=== PATIENT | female | born 1935 | race Caucasian/White ===

== ENCOUNTER → 2016-11-05 | Outpatient (CLI) | payer OTHER, MEDICAID ==
[2015-03-16 04:07] VITALS: BP 169/73
--- NOTE | 2016-11-06 08:57 | MG ---
HISTORY: SCREENING Comparison: 10/26/2015 FINDINGS: Bilateral CC and MLO projections of the right and left breast were obtained. Scattered fibroglandul ar tissue is seen to be present. No significant architectural distortion, mass or clustered microca lcifications can be observed to suggest malignancy. No skin thickening or nipple retraction is appr eciated. No pathological lymphadenopathy can be identified. IMPRESSION: NO RADIOGRAPHIC EVIDENCE OF MALIGNANCY. ACR CATEGORY I - NEGATIVE EXAM. FOLLOW-UP EXAM 1 YEAR. Diagnostic CAD was utilized and reviewed. * 0 (ZERO) - ASSESSMENT INCOMPLETE; ADDITIONAL IMAGING IS NEEDED. * 1/ (ONE) - NEGATIVE. * 2/II (TWO) - BENIGN FINDINGS. * 3/III (THREE) - PROBABLY BENIGN FINDING; SHORT INTERVAL FOLLOW-UP SUGGESTED. * 4/IV (FOUR) - SUSPICIOUS ABNORMALITY; BIOPSY SHOULD BE CONSIDERED. * 5/V - HIGHLY SUSPICIOUS OF MALIGNANCY; BIOPSY SHOULD BE PERFORMED. A NEGATIVE X-RAY REPORT SHOULD NOT DELAY BIOPSY IF A DOMINANT OR CLINICALLY SUSPICIOUS MASS IS PRESENT; 4 TO 8 PERCENT OF CANCERS ARE NOT IDENTIFIED BY X-RAY. A NEG ATIVE REPORT MAY REINFORCE THE CLINICAL IMPRESSION. ADENOSIS AND DENSE BREASTS MAY OBSCURE AN UNDER LYING NEOPLASM. Reported By:
== END ==
LOC: RAD 14:21
PROVIDERS: ATTEND Obstetrics & Gynecology Obstetrics
DX: Z12.31 Encounter for screening mammogram for malignant neoplasm of breast (principal)
CPT/HCPCS: 77067

== ENCOUNTER → 2016-12-07 | Outpatient (CLI) | payer OTHER, MEDICAID ==
[2015-03-16 04:07] VITALS: BP 169/73
[~2016-12-07] MED LIST: NS 100 ML IV 100 ML IV ONE
[2016-12-07 09:14] LABS: CREATININE 1.06 mg/dL (0.55-1.02)
--- NOTE | 2016-12-07 12:44 | CT ---
CT angiogram of the chest with contrast Indication: Aortic aneurysm, calcified splenic artery aneurysm. Comparison: 12/12/2015 Technique: CT images of the chest were obtained after IV contrast administration. Automatic exposure control was utilized. Findings: Images through the upper abdomen demonstrate a stable calcified 1.5 x 1.2 cm distal spleni c artery aneurysm. Diffuse atherosclerotic calcifications are seen within the abdomen. Previous chol ecystectomy noted. No aggressive osseous lesion identified. There is moderate cardiac enlargement, without significant pericardial thickening or pericardial eff usion, similar to prior. Diffuse coronary and thoracic aortic atherosclerotic calcifications are not ed. Previous CABG noted. Dilatation of the ascending aorta measures 3.9 x 3.9 cm at the level of the main pulmonary artery, unchanged from prior. The aortic arch and descending aorta are normal in karina iber. Contrast bolus timing is suboptimal, but no dissection flap identified. No evidence for intram ural hematoma on the precontrast images. No central or large proximal pulmonary arterial filling def ect identified. The lungs are clear without focal infiltrates, overt edema, or pleural effusion. The major airways a re patent. Impression: 1. Stable mild ascending aortic dilatation, measuring 3.9 cm. No evidence for acute aortic syndrome. No central pulmonary arterial filling defect. No acute chest process. 2. Stable peripherally calcified splenic artery aneurysm 3. Moderate cardiomegaly Reported By:
== END | disposition home or self-care (01) ==
LOC: RAD 08:37
PROVIDERS: ATTEND Physician Assistant
DX: I71.9 Aortic aneurysm of unspecified site, without rupture (principal)
CPT/HCPCS: 36415; 71275; 82565; 84520; A4222

== ENCOUNTER 2016-12-27 05:02 | Emergency (ER) | payer OTHER, MEDICAID ==
[2016-12-27 05:16] VITALS: BMI 25.7
--- NOTE | 2016-12-27 05:49 | DR.GENAD ---
HPI - PCP Primary Care Physician: LAURA Macias HPI Comment HPI Comment: COUGH, COLD CONGESTION THAT IS WORSE TODAY. NOW WITH CHEST TIGHTNESS. NO FEVER. YESTERDAY FELT LIKE SHE HAD FEVER. COUGH PRODUCTIVE YELLOW SPUTUM. NASAL DRAINAGE CLEAR. - Complaint/Symptoms Chief Complaint:: RUNNY NOSE, COUGH, NAUSEA, DISCOMFORT IN CHEST ONSET YESTERDAY AM Self Treatment fo Chief Complaint: HOME MEDS AND SOME TUMS, - Nurses notes reviewed Nurses Notes Review: Yes - Source History Provided: Patient - Mode of Arrival Mode of Arrival: Ambulatory - Timing Onset of Chief Complaint: 12/26/16 Came on: Suddenly - Duration Duration: Constant Duration: Days - Severity Severity: Moderate PMH - PMH Past Medical History: Yes Past Medical History: Coronary Artery Disease, Dyslipidemia, Hypertension Past Surgical History: Yes Surgical History: CABG/Valve Surgery, Cholecystectomy, EMERGENCY MEDICAL TECHNICIAN Surgery - Family History History of Family Medical Conditions: Yes Family Medical History: Cancer, [place] - Social History Does patient currently use any type of tobacco product: No Have you used tobacco products in the last 12 months: No Type of Tobacco Use: None Does any household member use tobacco: No Alcohol Use: None Do you use any recreational Drugs:: No Lives With: Alone Lives Where: Home - infectious screening In the last 2 months have you had wt loss of >10#?: NO Have you had fever, night sweats or hemotysis?: No Have you traveled outside the country in the last 6 months?: No Isolation: Standard ROS - Review of Systems Constitutional: Fever, Weakness, Fatigue. negative: Chills, Diaphoresis, Loss of Appetite Eyes: No Symptoms Reported. negative: Eye Pain, Discharge ENTM: Nose Discharge, Nose Congestion, Throat Pain. negative: Ear Pain Respiratoy: Productive Cough, Short of Breath, Wheezing. negative: Hemoptysis Cardiovascular: Chest Pain. negative: Edema, Palpitations Gastrointestinal/Abdominal: No Symptoms Reported. negative: Abdominal Pain, Diarrhea, Nausea, Vomiting Genitourinary: No Symptoms Reported. negative: Dysuria, Frequency, Hematuria Neurological: Headache, Weakness, Dizziness Musculoskeletal: Muscle Pain Integumentary: No Symptoms Reported Hematologic/Lymphatic: No Symptoms Reported Endocrine: No Symptoms Reported All Other Systems: Reviewed and Negative PE - Vital Signs Vitals: Temperature 98.1 F Pulse Rate [Right Brachial] 78 Pulse Rate 82 Respiratory Rate 14 Blood Pressure [Left Arm] 188/84 Blood Pressure 189/75 O2 Sat by Pulse Oximetry 96 - General Limitations: No Limitations General Appearance: Alert - Head Head Exam: Normal Inspection - Eyes Eye exam: Normal Appearance - ENT ENT Exam: Normal External Ear Exam External Ear Exam: Normal External Inspection TM/Canal Exam: Bilateral Normal Nose Exam: Normal Nose Exam Mouth Exam: Normal Inspection Throat Exam: Normal Inspection - Neck Neck Exam: Trachea Midline - Chest Chest Inspection: Symmetric Chest Wall Rise - Respiratory Respiratory Exam: Normal Lung Sounds Bilat Respiratory Exam: Bilateral Rhonchi, Upper Rhonchi, Lower Rhonchi - Cardiovascular Cardiovascular Exam: Regular Rate, Normal Rhythm, Normal Heart Sounds - Abdominal Exam Abdominal Exam: Normal Bowel Sounds, Soft. negative: Tenderness - Extremities Extremities Exam: Normal Inspection - Back Back Exam: Normal Inspection - Neurologic Neurological Exam: Alert, Oriented X3, CN II-XII Intact. negative: Motor Sensory Deficit - Psychiatric Psychiatric Exam: Normal Affect, Normal Mood - Skin Skin Exam: Normal Color MDM - Differential Diagnosis Differential Diagnosis: PNEUMONIA, CHEST PAIN, BRONCHITIS. SINUSITIS Course - Treatment Treatment: SEE ORDERS. - Education/Counseling Education/Counseling: Patient, Education Educated On: Treatment, Diagnosis, Needs for Follow Up ROR - Labs Reviewed Laboratory Results Reviewed?: Yes Result Diagrams: 12/27/16 05:50 12/27/16 05:50 Laboratory: WBC 5.3 X10^3/uL (3.6-10.0) 12/27/16 05:50 RBC 4.38 X10^6/uL (3.5-5.4) 12/27/16 05:50 Hgb 13.4 g/dL (12.0-16.0) 12/27/16 05:50 Hct 39.5 % (36.0-47.0) 12/27/16 05:50 MCV 90.2 fL (80.0-100.0) 12/27/16 05:50 MCH 30.6 pg (27.0-34.0) 12/27/16 05:50 MCHC 34.0 g/dL (33.0-35.0) 12/27/16 05:50 RDW 17.7 % (11.6-16.5) H 12/27/16 05:50 Plt Count 164 X10^3/uL (150.0-450.0) 12/27/16 05:50 MPV 9.1 fL (7.4-11.0) 12/27/16 05:50 Neut % 52.8 % (42.0-75.0) 12/27/16 05:50 Lymph % 34.2 % (21.0-51.0) 12/27/16 05:50 [place] % 9.9 % (0.0-13.0) 12/27/16 05:50 Eos % 1.8 % (0.9-2.9) 12/27/16 05:50 Baso % 1.3 % (0.2-1.0) H 12/27/16 05:50 Neut # 2.8 x10^3/uL (2.2-4.8) 12/27/16 05:50 Lymph # 1.8 X10^3/uL (1.3-2.9) 12/27/16 05:50 [place] # 0.5 x10^3/uL (0.3-0.8) 12/27/16 05:50 Eos # 0.1 x10^3/uL (0.0-0.2) 12/27/16 05:50 Baso # 0.1 X10^3/uL (0.0-0.1) 12/27/16 05:50 Absolute Nucleated RBC 0.0 /100WBC 12/27/16 05:50 Sodium 139 mmol/L (136-145) 12/27/16 05:50 Corrected Sodium 140 mmol/L (136-145) 12/27/16 05:50 Potassium 4.1 mmol/L (3.5-5.1) 12/27/16 05:50 Chloride 104 mmol/L (98-107) 12/27/16 05:50 Carbon Dioxide 26.9 mmol/L (21-32) 12/27/16 05:50 BUN 15 mg/dL (7-18) 12/27/16 05:50 Creatinine 1.07 mg/dL (0.55-1.02) H 12/27/16 05:50 Est GFR (MDRD) Af Amer > 60 (>60) 12/27/16 05:50 Est GFR (MDRD) Non-Af 52 (>60) L 12/27/16 05:50 Glucose 126 mg/dL (65-99) H 12/27/16 05:50 Calcium 9.0 mg/dL (8.5-10.1) 12/27/16 05:50 Corrected Calcium TNP 12/27/16 05:50 Total Bilirubin 0.90 mg/dL (0.2-1.0) 12/27/16 05:50 AST 31 Units/L (15-37) 12/27/16 05:50 ALT 35 Units/L (12-78) 12/27/16 05:50 Alkaline Phosphatase 138 Units/L (46-116) H 12/27/16 05:50 Creatine Kinase 76 Units/L (26-192) 12/27/16 05:50 CK-MB (CK-2) 1.0 ng/mL (0-4.0) 12/27/16 05:50 CK/CKMB % Calc 1.3 % (<4) 12/27/16 05:50 Troponin I < 0.02 ng/mL (0-1.5) 12/27/16 05:50 Total Protein 7.4 g/dL (6.4-8.2) 12/27/16 05:50 Albumin 3.8 g/dL (3.4-5.0) 12/27/16 05:50 Globulin 3.6 g/dL (2.5-4.5) 12/27/16 05:50 Albumin/Globulin Ratio 1.1 Ratio (1.1-2.1) 12/27/16 05:50 - XRAY XRAY Interpreted by: Radiologist XRAY Findings: REPORT DISCUSS WITH PATIENT - EKG Rhythm: NSR (EKG NOTED) - Diagnosis Discharge Problem: Bronchitis Chest pain Qualifiers: Chest pain type: other chest pain Qualified Code(s): R07.89 - Other chest pain - Discharge Plan Disposition: 01 HOME, SELF-CARE Condition: Stable Prescriptions: Azithromycin [ZITHROMAX Tab 250 mg *] 1 dose PO DAILY #6 tab Benzonatate [TESSALON PERLES *] 200 mg PO TID PRN #21 cap PRN Reason: Cough - Follow ups/Referrals Follow ups/Referrals: NFD,None [Primary Care Provider] - 3 days - Instructions Instructions: Chest Pain Observation, Acute Bronchitis, [id number] Additional Instructions: RETURN TO ED IF WORSE.
[2016-12-27 06:01] LABS: BASOPHILS # (AUTO) 0.1 X10^3/uL (0.0-0.1); BASOPHILS % (AUTO) 1.3 % (0.2-1.0); EOSINOPHILS # (AUTO) 0.1 x10^3/uL (0.0-0.2); EOSINOPHILS % (AUTO) 1.8 % (0.9-2.9); HEMATOCRIT 39.5 % (36.0-47.0); HEMOGLOBIN 13.4 g/dL (12.0-16.0); LYMPHOCYTES # (AUTO) 1.8 X10^3/uL (1.3-2.9); LYMPHOCYTES % (AUTO) 34.2 % (21.0-51.0); MEAN CORPUSCULAR HEMOGLOBIN 30.6 pg (27.0-34.0); MEAN CORPUSCULAR VOLUME 90.2 fL (80.0-100.0); MEAN PLATELET VOLUME 9.1 fL (7.4-11.0); MONOCYTES # (AUTO) 0.5 x10^3/uL (0.3-0.8); MONOCYTES % (AUTO) 9.9 % (0.0-13.0); NEUTROPHILS # (AUTO) 2.8 x10^3/uL (2.2-4.8); NEUTROPHILS % (AUTO) 52.8 % (42.0-75.0); PLATELET COUNT 164 X10^3/uL (150.0-450.0); RED BLOOD COUNT 4.38 X10^6/uL (3.5-5.4); RED CELL DISTRIBUTION WIDTH 17.7 % (11.6-16.5); WHITE BLOOD COUNT 5.3 X10^3/uL (3.6-10.0)
[2016-12-27 06:19] LABS: BLOOD UREA NITROGEN 15 mg/dL (7-18); CARBON DIOXIDE 26.9 mmol/L (21-32); CHLORIDE 104 mmol/L (98-107); COR NA(FOR HYPERGLY) 140 mmol/L (136-145); CREATININE 1.07 mg/dL (0.55-1.02); GLUCOSE 126 mg/dL (65-99); SODIUM 139 mmol/L (136-145); TROPONIN I < 0.02 ng/mL (0-1.5); eGFR BLACK RACES > 60 (>60); eGFR NON BLACK RACES 52 (>60)
[2016-12-27 06:23] VITALS: BP 188/84
--- NOTE | 2016-12-27 06:29 | RAD ---
HISTORY: Chest pain and nausea Study: Single-view chest, done portably Comparison: CTA chest done 12/07/2016 Findings: Cardiac monitoring leads are noted on the chest. There again changes of CABG with median sternotomy sutures and metallic sutures indicating coronary artery bypass grafts. The trachea is midline calcif ication of the aortic arch clear. No infiltrate, CHF, pleural fluid or pneumothorax is seen. Osseous structures are intact. IMPRESSION: Status post CABG with cardiomegaly. No acute disease is seen. Reported By:
[2016-12-27 06:34] LABS: ALANINE AMINOTRANSFERASE 35 Units/L (12-78); ALBUMIN 3.8 g/dL (3.4-5.0); ALKALINE PHOSPHATASE 138 Units/L (46-116); ASPARTATE AMINO TRANSFERASE 31 Units/L (15-37); CKMB % 1.3 % (<4); CREATINE KINASE 76 Units/L (26-192); TOTAL PROTEIN 7.4 g/dL (6.4-8.2)
[2016-12-27] MEDS ORDERED: ROCEPHIN VIAL 1 GM 1 GM in NS 50 ML IV + SPIKE MINIBAG* 50 ML IV ONE (06:54)
[2016-12-27] MEDS ORDERED: ROCEPHIN 1 GM IV PREMIX * OUT OF STOCK 50 ML IV ONE (06:56)
== END 2016-12-27 08:18 | disposition home or self-care (01) ==
LOC: ER 05:02
DX: J40 Bronchitis, not specified as acute or chronic (principal); R07.89 Other chest pain
CPT/HCPCS: 36415; 71010; 80053; 82550; 82553; 84484; 85025; 93005; 93010; 96365; 96374; 99283; A4222; J0696

== ENCOUNTER 2018-10-23 06:49 | Observation (INO) ==
[2018-10-23 07:29] LABS: BASOPHILS # (AUTO) 0.1 X10^3/uL (0.0-0.1); BASOPHILS % (AUTO) 1.3 % (0.2-1.0); EOSINOPHILS # (AUTO) 0.2 x10^3/uL (0.0-0.2); EOSINOPHILS % (AUTO) 2.9 % (0.9-2.9); HEMATOCRIT 35.9 % (36.0-47.0); LYMPHOCYTES % (AUTO) 25.3 % (21.0-51.0); MEAN CORPUSCULAR HEMOGLOBIN 29.1 pg (27.0-34.0); MEAN CORPUSCULAR HGB CONC 33.5 g/dL (33.0-35.0); MEAN CORPUSCULAR VOLUME 86.8 fL (80.0-100.0); MEAN PLATELET VOLUME 8.7 fL (7.4-11.0); MONOCYTES # (AUTO) 0.7 x10^3/uL (0.3-0.8); MONOCYTES % (AUTO) 8.5 % (0.0-13.0); NEUTROPHILS # (AUTO) 4.8 x10^3/uL (2.2-4.8); PLATELET COUNT 212 X10^3/uL (150.0-450.0); RED BLOOD COUNT 4.14 X10^6/uL (3.5-5.4); RED CELL DISTRIBUTION WIDTH 16.4 % (11.6-16.5); WHITE BLOOD COUNT 7.8 X10^3/uL (3.6-10.0)
--- NOTE | 2018-10-23 07:34 | DR.CP ---
HPI Time Seen Time Seen by Provider: 10/23/18 07:23 PCP Primary Care Physician: LAURA HPI Comment HPI Comment: Patient presents with complaint of chest pain. Earlier today the pain level of 7 but now two. The pain is on the left chest and radiates media lly. Complaint Chief Complaint Doctor Comments: chest pain Chief Complaint:: PT C/O CHEST PAIN, LT ARM PAIN AND EPIGASTRIC PAIN. PT STATES SHE STARTED WITH THE PAIN AROUND 2 AM. PT STATES SHE HAS BEEN HAVING DIARRHEA ALSO. 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 Past Surgical History Comment: TRIPLE BYPASS Family History History of Family Medical Conditions: Yes Family Medical History: Cancer and [place] Social History Does any household member use tobacco: No Alcohol Use: None Do you use any recreational Drugs:: No Lives With: Alone Lives Where: Home infectious screening In the last 2 months have you had wt loss of >10#?: NO Have you had fever, night sweats or hemotysis?: No Have you traveled outside the country in the last 6 months?: No Isolation: Standard ROS Review of Systems Constitutional: No Symptoms Reported ENTM: No Symptoms Reported Respiratoy: No Symptoms Reported Cardiovascular: No Symptoms Reported Gastrointestinal/Abdominal: No Symptoms Reported Genitourinary: No Symptoms Reported Neurological: No Symptoms Reported Musculoskeletal: No Symptoms Reported Hematologic/Lymphatic: No Symptoms Reported Endocrine: No Symptoms Reported All Other Systems: Reviewed and Negative PE Vitals Vitals: Temperature 97.2 F Pulse Rate 80 Respiratory Rate 18 Blood Pressure [Left Arm] 188/84 Blood Pressure 134/68 O2 Sat by Pulse Oximetry 93 General Limitations: No Limitations General Appearance: Alert and In No Apparent Distress Head Head Exam: Normal Inspection, Atraumatic and Normocephalic Eyes Eye exam: Normal Appearance, PERRL and EOMI ENT ENT Exam: Normal Exam, Normal Oropharynx and Normal External Ear Exam Chest Chest Inspection: Normal Inspection and Symmetric Chest Wall Rise Respiratory Respiratory Exam: Normal Lung Sounds Bilat Respiratory Exam: Bilateral: Clear to Auscultation Cardiovascular Cardiovascular Exam: Regular Rate and Normal Rhythm Edema: Normal Abdominal Exam Abdominal Exam: Normal Inspection, Normal Bowel Sounds and Soft Abdominal Tenderness: RUQ, RLQ and LUQ Extremities Extremities Exam: Normal Inspection Back Back Exam: Normal Inspection and Full ROM Neurologic Neurological Exam: Alert, Oriented X3 and CN II-XII Intact Psychiatric Psychiatric Exam: Normal Affect Skin Skin Exam: Warm, Dry and Intact ROR Labs Reviewed Result Diagrams: 10/23/18 07:18 10/23/18 07:18
--- NOTE | 2018-10-23 07:40 | RAD ---
HISTORY: Chest pain Study: Chest AP portable Comparison: 12/27/2016 Findings: The patient is status post median sternotomy and CABG. The heart remains enlarged. No congestive heart failure is noted. No acute alveolar infiltrates or pleural effusions are identified. The bony thorax is unremarkable. IMPRESSION: Moderate cardiomegaly without congestive heart failure No infiltrates Postsurgical changes as above Reported By:
[2018-10-23 07:59] LABS: BLOOD UREA NITROGEN 26 mg/dL (7-18); CALCIUM 8.9 mg/dL (8.5-10.1); CARBON DIOXIDE 26.4 mmol/L (21-32); CHLORIDE 102 mmol/L (98-107); COR NA(FOR HYPERGLY) 140 mmol/L (136-145); CREATININE 1.22 mg/dL (0.55-1.02); SODIUM 140 mmol/L (136-145); eGFR NON BLACK RACES 45 (>60)
[2018-10-23 08:00] LABS: CKMB % 2.4 % (<4); CREATINE KINASE 50 Units/L (26-192); CREATINE KINASE MB 1.2 ng/mL (0-4.0); MAGNESIUM 2.2 mg/dL (1.7-2.9)
[2018-10-23 08:13] LABS: ALANINE AMINOTRANSFERASE 27 Units/L (12-78); ALKALINE PHOSPHATASE 105 Units/L (46-116); ASPARTATE AMINO TRANSFERASE 20 Units/L (15-37)
[2018-10-23 08:14] LABS: ALBUMIN 3.8 g/dL (3.4-5.0); TOTAL PROTEIN 6.7 g/dL (6.4-8.2)
--- NOTE | 2018-10-23 09:22 | DR.CP ---
HPI Time Seen Time Seen by Provider: 10/23/18 07:23 PCP Primary Care Physician: LAURA Complaint Chief Complaint:: PT C/O CHEST PAIN, LT ARM PAIN AND EPIGASTRIC PAIN. PT STATES SHE STARTED WITH THE PAIN AROUND 2 AM. PT STATES SHE HAS BEEN HAVING DIARRHEA ALSO. PT STATES Source History Provided: Patient Mode of Arrival Mode of Arrival: Ambulatory Timing Onset of Chief Complaint: 10/23/18 PMH PMH Past Medical History: Yes Past Medical History: Coronary Artery Disease, Dyslipidemia and Hypertension Past Surgical History: Yes Surgical History: CABG/Valve Surgery, Cholecystectomy and PLASMA PROCESSING TECHNICIAN Surgery Past Surgical History Comment: TRIPLE BYPASS Family History History of Family Medical Conditions: Yes Family Medical History: Cancer and [place] Social History Does any household member use tobacco: No Alcohol Use: None Do you use any recreational Drugs:: No Lives With: Alone Lives Where: Home infectious screening In the last 2 months have you had wt loss of >10#?: NO Have you had fever, night sweats or hemotysis?: No Have you traveled outside the country in the last 6 months?: No Isolation: Standard PE Vitals Vitals: Temperature 97.2 F Pulse Rate 56 Respiratory Rate 25 Blood Pressure [Left Arm] 188/84 Blood Pressure 141/65 O2 Sat by Pulse Oximetry 96 COURSE Consultation Consultation Comments: 10:00 : DISCUSS PATIENT WITH DR. SANCHEZ. HE WILL ADM PATIENT. TIME 2MIN. ADMISSION ORDERS DONE. Education/Counseling Education/Counseling: Patient Educated On: Diagnosis ROR Labs Reviewed Laboratory Results Reviewed?: Yes Result Diagrams: 10/23/18 07:18 10/23/18 07:18 Laboratory: WBC 7.8 X10^3/uL (3.6-10.0) 10/23/18 07:18 RBC 4.14 X10^6/uL (3.5-5.4) 10/23/18 07:18 Hgb 12.0 g/dL (12.0-16.0) 10/23/18 07:18 Hct 35.9 % (36.0-47.0) L 10/23/18 07:18 MCV 86.8 fL (80.0-100.0) 10/23/18 07:18 MCH 29.1 pg (27.0-34.0) 10/23/18 07:18 MCHC 33.5 g/dL (33.0-35.0) 10/23/18 07:18 RDW 16.4 % (11.6-16.5) 10/23/18 07:18 Plt Count 212 X10^3/uL (150.0-450.0) 10/23/18 07:18 MPV 8.7 fL (7.4-11.0) 10/23/18 07:18 Neut % (Auto) 62.0 % (42.0-75.0) 10/23/18 07:18 Lymph % (Auto) 25.3 % (21.0-51.0) 10/23/18 07:18 [place] % (Auto) 8.5 % (0.0-13.0) 10/23/18 07:18 Eos % (Auto) 2.9 % (0.9-2.9) 10/23/18 07:18 Baso % (Auto) 1.3 % (0.2-1.0) H 10/23/18 07:18 Neut # (Auto) 4.8 x10^3/uL (2.2-4.8) 10/23/18 07:18 Lymph # (Auto) 2.0 X10^3/uL (1.3-2.9) 10/23/18 07:18 [place] # (Auto) 0.7 x10^3/uL (0.3-0.8) 10/23/18 07:18 Eos # (Auto) 0.2 x10^3/uL (0.0-0.2) 10/23/18 07:18 Baso # (Auto) 0.1 X10^3/uL (0.0-0.1) 10/23/18 07:18 Absolute Nucleated RBC 0.0 /100WBC 10/23/18 07:18 INR Target Range - 10/23/18 07:18 INR 1.39 (0.8-1.3) H 10/23/18 07:18 APTT 32.4 SECONDS (22.9-36.5) 10/23/18 07:18 PTT Comment - 10/23/18 07:18 D-Dimer 432 ng/mL (0-400) H* 10/23/18 07:18 Sodium 140 mmol/L (136-145) 10/23/18 07:18 Corrected Sodium 140 mmol/L (136-145) 10/23/18 07:18 Potassium 4.0 mmol/L (3.5-5.1) 10/23/18 07:18 Chloride 102 mmol/L (98-107) 10/23/18 07:18 Carbon Dioxide 26.4 mmol/L (21-32) 10/23/18 07:18 BUN 26 mg/dL (7-18) H 10/23/18 07:18 Creatinine 1.22 mg/dL (0.55-1.02) H 10/23/18 07:18 Est GFR (MDRD) Af Amer 54 (>60) L 10/23/18 07:18 Est GFR (MDRD) Non-Af 45 (>60) L 10/23/18 07:18 Glucose 119 mg/dL (65-99) H 10/23/18 07:18 Calcium 8.9 mg/dL (8.5-10.1) 10/23/18 07:18 Corrected Calcium TNP 10/23/18 07:18 Magnesium 2.2 mg/dL (1.7-2.9) 10/23/18 07:18 Total Bilirubin 0.70 mg/dL (0.2-1.0) 10/23/18 07:18 AST 20 Units/L (15-37) 10/23/18 07:18 ALT 27 Units/L (12-78) 10/23/18 07:18 Alkaline Phosphatase 105 Units/L (46-116) 10/23/18 07:18 Creatine Kinase 50 Units/L (26-192) 10/23/18 07:18 CK-MB (CK-2) 1.2 ng/mL (0-4.0) 10/23/18 07:18 CK/CKMB % Calc 2.4 % (<4) 10/23/18 07:18 Troponin I 0.00 ng/mL (0-1.5) 10/23/18 07:18 Total Protein 6.7 g/dL (6.4-8.2) 10/23/18 07:18 Albumin 3.8 g/dL (3.4-5.0) 10/23/18 07:18 Globulin 2.9 g/dL (2.5-4.5) 10/23/18 07:18 Albumin/Globulin Ratio 1.3 Ratio (1.1-2.1) 10/23/18 07:18 XRAY XRAY Interpreted by: Radiologist XRAY Findings: REPORT ON RECORD NOTED AND DISCUSS WITH PATIENT. EKG Rate: 66 [place]: Normal Rhythm: NSR and PVCs (BOGEMINI) Block: [address]: Nonsp Diagnosis Discharge Problem: D-dimer, elevated Chest pain Qualifiers: Chest pain type: precordial pain Qualified Code(s): R07.2 - Precordial pain CAD (coronary artery disease) Qualifiers: Coronary Disease-Associated Artery/Lesion type: unspecified vessel or lesion type [place] vs. transplanted heart: [place] heart Associated angina: with stable angina Qualified Code(s): I25.118 - Atherosclerotic heart disease of [place] coronary artery with other forms of angina pectoris HTN (hypertension) Qualifiers: Hypertension type: essential hypertension Qualified Code(s): I10 - Essential (primary) hypertension
[2018-10-23] MEDS ORDERED: ASPIRIN 81 MG CHEWTAB PO SCH (10:00)
[2018-10-23] MEDS ORDERED: ELIQUIS PO SCH (11:02)
[2018-10-23] MEDS ORDERED: NITROSTAT SL PRN (11:02)
--- NOTE | 2018-10-23 11:32 | CT ---
HISTORY: Left chest pain, elevated D-dimer Study: CTA chest with contrast for pulmonary embolus Comparison: 12/07/2016 Technique: Axial post-contrast images with coronal, sagittal, and three-dimensional maximum intensity projection images obtained in evaluated. Dose reduction procedures were used with mA/kv adjusted for body size. Findings: There is no evidence for acute pulmonary thromboembolic disease. Examination of the mediastinum demonstrated no definite evidence for mediastinal masses, abnormal mediastinal or abnormal hilar adenopathy, or pleural effusions. Calcific atherosclerotic changes present in the thoracic aorta. There is mild dilatation of the aortic root measuring 4.1 x 4.1 cm in diameter not significantly changed from the prior examination. Coronary artery calcifications are present. The heart is enlarged. No chest wall or axillary abnormality is identified. Those portions of the upper abdominal organs visualized were within normal limits. Incidental note once again made of a densely calcified 1.7 cm splenic artery aneurysm. Examination of the lung cha demonstrated no significant nodules, masses, alveolar infiltrates, areas of consolidation, peribronchial thickening, or bronchiectasis. IMPRESSION: No evidence for acute pulmonary thromboembolic disease Mild dilatation of the aortic root 4.1 cm as compared to 3.9 cm on the prior examination. Stable densely calcified splenic artery aneurysm Moderate cardiomegaly without definite congestive heart failure Reported By:
[2018-10-23] MEDS: ZESTRIL TAB 20 MG PO SCH (11:47)
[2018-10-23 12:47] VITALS: BMI 26.4
[2018-10-23 13:15] LABS: BILIRUBIN,URINE NEGATIVE (NEGATIVE); BLOOD/HEMOGLOBIN,URINE NEGATIVE (NEGATIVE); GLUCOSE, URINE NEGATIVE (NEGATIVE); KETONES,URINE NEGATIVE (NEGATIVE); LEUKOCYTE ESTERASE ,URINE NEGATIVE (NEGATIVE); NITRITES,URINE NEGATIVE (NEGATIVE); PROTEIN,URINE NEGATIVE (NEGATIVE); UROBILINOGEN,URINE NORMAL (NORMAL)
[2018-10-23 13:17] LABS: APPEARANCE,URINE CLEAR (CLEAR); COLOR,URINE STRAW (YELLOW)
[2018-10-23 14:30] LABS: CKMB % 2.2 % (<4); CREATINE KINASE 45 Units/L (26-192); CREATINE KINASE MB < 1.0 ng/mL (0-4.0); TROPONIN I < 0.02 ng/mL (0-1.5)
[2018-10-23] MEDS: TYLENOL 325 MG TAB PO PRN ×2 (15:10→21:20)
[2018-10-23] MEDS: MAALOX or MYLANTA PO PRN ×2 (15:10→20:58)
[2018-10-23 20:04] LABS: CKMB % 1.8 % (<4); CREATINE KINASE 56 Units/L (26-192); CREATINE KINASE MB < 1.0 ng/mL (0-4.0); TROPONIN I < 0.02 ng/mL (0-1.5)
[2018-10-23] MEDS ORDERED: NORVASC TAB 5 MG PO SCH (21:00)
[2018-10-23] MEDS ORDERED: XANAX PO PRN (21:10)
[2018-10-23] MEDS ORDERED: LYRICA CAP 150 MG PO SCH (21:15)
[2018-10-23] MEDS: LYRICA CAP 75 MG PO SCH (21:47)
[2018-10-24 05:34] LABS: BASOPHILS # (AUTO) 0.2 X10^3/uL (0.0-0.1); BASOPHILS % (AUTO) 2.9 % (0.2-1.0); EOSINOPHILS # (AUTO) 0.3 x10^3/uL (0.0-0.2); EOSINOPHILS % (AUTO) 4.1 % (0.9-2.9); HEMATOCRIT 37.2 % (36.0-47.0); HEMOGLOBIN 12.6 g/dL (12.0-16.0); LYMPHOCYTES # (AUTO) 2.5 X10^3/uL (1.3-2.9); LYMPHOCYTES % (AUTO) 32.7 % (21.0-51.0); MEAN CORPUSCULAR VOLUME 88.1 fL (80.0-100.0); MEAN PLATELET VOLUME 9.6 fL (7.4-11.0); MONOCYTES # (AUTO) 0.6 x10^3/uL (0.3-0.8); MONOCYTES % (AUTO) 7.9 % (0.0-13.0); NEUTROPHILS % (AUTO) 52.4 % (42.0-75.0); PLATELET COUNT 196 X10^3/uL (150.0-450.0); RED BLOOD COUNT 4.22 X10^6/uL (3.5-5.4); RED CELL DISTRIBUTION WIDTH 16.6 % (11.6-16.5); WHITE BLOOD COUNT 7.7 X10^3/uL (3.6-10.0)
[2018-10-24 05:54] LABS: ALANINE AMINOTRANSFERASE 23 Units/L (12-78); ALBUMIN 3.5 g/dL (3.4-5.0); ALKALINE PHOSPHATASE 99 Units/L (46-116); ASPARTATE AMINO TRANSFERASE 17 Units/L (15-37); BLOOD UREA NITROGEN 18 mg/dL (7-18); CALCIUM 8.8 mg/dL (8.5-10.1); CARBON DIOXIDE 27.8 mmol/L (21-32); CHLORIDE 105 mmol/L (98-107); CHOLESTEROL 173 mg/dL (0-200); CREATININE 1.08 mg/dL (0.55-1.02); HDL CHOLESTEROL 57 mg/dL (40-60); SODIUM 141 mmol/L (136-145); TOTAL PROTEIN 6.7 g/dL (6.4-8.2); TRIGLYCERIDES 174 mg/dL (0-150); eGFR NON BLACK RACES 52 (>60)
[2018-10-24] MEDS ORDERED: LOPRESSOR TAB 50 MG PO SCH ×2 (09:00)
[2018-10-24] MEDS ORDERED: LR 1000 ML IV 1,000 ML ONE (09:17)
[2018-10-24] MEDS ORDERED: DIPRIVAN VIAL 20 ML ONE (09:27)
[2018-10-24] MEDS ORDERED: PROTONIX INJ 40 MG VIAL IVP SCH (10:00)
[2018-10-24] MEDS ORDERED: ZESTRIL TAB 20 MG ONE (10:09)
[2018-10-24] MEDS: ZESTRIL TAB 20 MG PO SCH (10:12)
[2018-10-24] MEDS: LYRICA CAP 75 MG PO SCH (10:14)
[2018-10-24 11:49] VITALS: BP 151/71
== END 2018-10-24 12:20 | disposition home or self-care (01) ==
LOC: ER 06:54 → MED/SURG 06:54
PROVIDERS: ADMIT Obstetrics & Gynecology Obstetrics; ATTEND Obstetrics & Gynecology Obstetrics
DX: R94.4 Abnormal results of kidney function studies; R10.13 Epigastric pain; K29.00 Acute gastritis without bleeding; K21.9 Gastro-esophageal reflux disease without esophagitis; Z79.01 Long term (current) use of anticoagulants; R94.31 Abnormal electrocardiogram [ECG] [EKG]; I10 Essential (primary) hypertension; E78.2 Mixed hyperlipidemia; K92.1 Melena; K44.9 Diaphragmatic hernia without obstruction or gangrene; R10.84 Generalized abdominal pain; R79.1 Abnormal coagulation profile; I25.118 Atherosclerotic heart disease of native coronary artery with other forms of angina pectoris; R07.89 Other chest pain; Z79.899 Other long term (current) drug therapy
CPT/HCPCS: 36415; 71010; 71045; 71275; 80053; 80061; 81003; 82270; 82550; 82553; 83735; 84484; 85025; 85378; 85610; 85730; 88305; 88341; 93005; 94760; 96365; 96367; 96374; 99100; 99284; A4222; C9113; G0378; J2704; J3490; J7120

== ENCOUNTER 2020-07-09 14:52 | Observation (INO) ==
[2020-07-09 15:01] VITALS: BMI 27.4
--- NOTE | 2020-07-09 15:05 | DR.CP ---
HPI Time Seen Time Seen by Provider: 07/09/20 15:05 PCP Primary Care Physician: DR SANCHEZ HPI Comment HPI Comment: This is a 84-year-old female with previous history of CAD, status post CABG, A. fib (on Eliquis) who presents with approximately 1 hour history of chest pain. Complains of sternal area chest pain, radiating to bilateral flanks, dull/aching in quality, constant, relieved after antiacids at home mildly, associated with epigastric burning of the past 2 days. No shortness of breath, palpitations, syncope, diaphoresis. Patient has a previous history of CAD in the past requiring CABG in 1997. Denies any similarity to her current pain to pain leading up to her previous bypass. Follows with Dr. Redman (cardiology). Primary care physician is Dr. Sanchez. Denies lower extremity edema, ROLON, orthopnea. No fever/chills. No cough/cold/congestion Complaint Chief Complaint:: PT C/O GENERALIZED CHEST PAIN THAT RADIATES INTO LEFT ARM X 1 HOUR. PT ALSO C/O GAS THIS MORNING WITH SOME MILD SHORTNESS OF BREATH BUT STATES THAT SHE IS FEELING A LITTLE BETTER NOW. Self Treatment fo Chief Complaint: WAS SEEN BY DR REDMAN OF CARDIOLOGY LAST SATURDAY. Source History Provided: Patient Mode of Arrival Mode of Arrival: EMS Timing Onset of Chief Complaint: 07/09/20 Came on: Suddenly Duration Duration: Constant Severity Severity: Moderate PMH PMH Past Medical History: Yes Past Medical History: Coronary Artery Disease Past Medical History Comment: COVID POSITIVE MAY 27 Past Surgical History: Yes Surgical History: CABG/Valve Surgery and Tonsillectomy Family History History of Family Medical Conditions: Yes Family Medical History: Hypertension Social History Does patient currently use any type of tobacco product: No Have you used tobacco products in the last 12 months: No Type of Tobacco Use: None Does any household member use tobacco: No Alcohol Use: None Do you use any recreational Drugs:: No Lives With: Family Lives Where: Home Infectious screening In the last 2 months have you had wt loss of >10#?: NO Have you had fever, night sweats or hemotysis?: No Have you traveled outside the country in the last 6 months?: No Isolation: Standard ROS Review of Systems Constitutional: No Symptoms Reported Eyes: No Symptoms Reported ENTM: No Symptoms Reported Respiratoy: negative Short of Breath Cardiovascular: Chest Pain; negative Edema, Palpitations and Syncope Gastrointestinal/Abdominal: negative Abdominal Pain, Nausea and Vomiting Genitourinary: No Symptoms Reported Neurological: No Symptoms Reported Musculoskeletal: No Symptoms Reported Integumentary: No Symptoms Reported Hematologic/Lymphatic: No Symptoms Reported Endocrine: No Symptoms Reported Psychiatric: No Symptoms Reported All Other Systems: Reviewed and Negative PE Vitals Vitals: Temperature 36.7 C Pulse Rate 55 Respiratory Rate 15 Blood Pressure [Left Arm] 134/64 Blood Pressure 151/66 O2 Sat by Pulse Oximetry 95 General Limitations: No Limitations General Appearance: Alert and In No Apparent Distress Head Head Exam: Normal Inspection Eyes Eye exam: Normal Appearance ENT ENT Exam: Normal Exam Chest Chest Inspection: Normal Inspection Respiratory Respiratory Exam: Normal Lung Sounds Bilat; negative Accessory Muscle Use and Respiratory Distress Respiratory Exam: Bilateral: Clear to Auscultation Cardiovascular Cardiovascular Exam: Regular Rate and Irregular Rhythm; negative Systolic Murmur Pulse: Normal Edema: Normal Abdominal Exam Abdominal Exam: Normal Inspection, Normal Bowel Sounds and Soft Extremities Extremities Exam: Normal Inspection Back Back Exam: Normal Inspection Neurologic Neurological Exam: Alert and Oriented X3 Psychiatric Psychiatric Exam: Normal Affect and Normal Mood Skin Skin Exam: Warm, Dry, Intact and Normal Color COURSE Treatment Treatment: This is a 84-year-old female with previous history of CAD/status post CABG (1997), A. fib (on Eliquis) acute chest pain. Chest pain resolved upon arrival to ED. EKG obtained demonstrated an old Q wave, no reciprocal ST segment changes. No continued active chest pain in the ER. TNI negative. Sodium incidentally noted to be 120. Patient has a previous history of hyponatremia with a noted sodium of 126 last year. Unclear etiology of her hyponatremia. Do not suspect hypovolemia by history. Will obtain urine sodium/creatinine as well as urine and serum osmolality. We will start patient on gentle IV fluids. Discussed all details of case with hospitalist on-call (Dr. Sanchez) who agrees to admit. ASA given. [facility] Labs Reviewed Result Diagrams: 07/09/20 15:30 07/09/20 15:30 Laboratory: WBC 5.8 X10^3/uL (3.6-10.0) 07/09/20 15:30 RBC 3.73 X10^6/uL (3.5-5.4) 07/09/20 15:30 Hgb 10.8 g/dL (12.0-16.0) L 07/09/20 15:30 Hct 32.7 % (36.0-47.0) L 07/09/20 15:30 MCV 87.6 fL (80.0-100.0) 07/09/20 15:30 MCH 28.8 pg (27.0-34.0) 07/09/20 15: MCHC 32.9 g/dL (33.0-35.0) L 07/09/20 15: RDW 19.9 % (11.6-16.5) H 07/09/20 15: Plt Count 287 X10^3/uL (150.0-450.0) 07/09/20: MPV 7.9 fL (7.4-11.0) 07/09/20 15: Neut % (Auto) 76.5 % (42.0-75.0) H 07/09/20 15: Lymph % (Auto) 13.6 % (21.0-51.0) L 07/09/20 15: [place] % (Auto) 8.3 % (0.0-13.0) 07/09/20 15: Eos % (Auto) 0.5 % (0.9-2.9) L 07/09/20 15: Baso % (Auto) 1.1 % (0.2-1.0) H 07/09/20 15:30 Neut # (Auto) 4.4 x10^3/uL (2.2-4.8) 07/09/20 15:30 Lymph # (Auto) 0.8 X10^3/uL (1.3-2.9) L 07/09/20 15:30 [place] # (Auto) 0.5 x10^3/uL (0.3-0.8) 07/09/20 15: Eos # (Auto) 0.0 x10^3/uL (0.0-0.2) 07/09/20 15: Baso # (Auto) 0.1 X10^3/uL (0.0-0.1) 07/09/20 15: Absolute Nucleated RBC 0.0 /100WBC 07/09/20 15:30 PT 18.0 SECONDS (11.8-14.3) 07/09/20 15:30 INR Target Range - 07/09/20 15:30 INR 1.54 (0.8-1.3) H 07/09/20 15:30 APTT 35.1 SECONDS (22.9-36.5) 07/09/20 15:30 PTT Comment - 07/09/20 15:30 Sodium 120 mmol/L (136-145) L* 07/09/20 15:30 Corrected Sodium 121 mmol/L (136-145) L 07/09/20 15:30 Potassium 4.0 mmol/L (3.5-5.1) 07/09/20 15:30 Chloride 86 mmol/L (98-107) L 07/09/20 15:30 Carbon Dioxide 28.2 mmol/L (21-32) 07/09/20 15:30 BUN 15 mg/dL (7-18) 07/09/20 15:30 Creatinine 1.54 mg/dL (0.55-1.02) H 07/09/20 15:30 Est GFR (MDRD) Af Amer 41 (>60) L 07/09/20 15:30 Est GFR (MDRD) Non-Af 34 (>60) L 07/09/20 15:30 Glucose 146 mg/dL (65-99) H 07/09/20 15:30 Calcium 8.8 mg/dL (8.5-10.1) 07/09/20 15:30 Troponin I < 0.02 ng/mL (0-1.5) 07/09/20 15:30 EKG Compared to prior EKG Dated: 06/12/20 Rate: 58 Rhythm: Afib Block: IVCD Hypertrophy: None ST: Nonsp (q wave leads, no reciprical ST segment depressions, old t wave inversions ) Opioid Opioid Risk Tool Age (Daniel box if 16-45): No History of Preadolescent Sexual Abuse: No Total: 0 Total Score Risk Category: Low Risk Copyright: Ramón PERRY predicting aberrant behaviors Diagnosis Discharge Problem: Acute hyponatremia, Chronic hyponatremia Chest pain Qualifiers: Chest pain type: unspecified Qualified Code(s): R07.9 - Chest pain, unspecified CAD (coronary artery disease) Qualifiers: Coronary Disease-Associated Artery/Lesion type: bypass graft [place] vs. transplanted heart: pic[place] heart Associated angina: with stable angina Qualified Code(s): I25.708 - Atherosclerosis of coronary artery bypass graft(s), unspecified, with other forms of angina pectoris A-fib Qualifiers: Atrial fibrillation type: longstanding persistent Qualified Code(s): I48.11 - Longstanding persistent atrial fibrillation Instructions Forms: Patient Portal Social Distancing
--- NOTE | 2020-07-09 15:30 | RAD ---
HISTORYChest painSTUDYPortable AP chestCOMPARISONFebruary 2020FINDINGSThe heart is mildly enlarged. Sternal wires and mediastinal vascular clips are present. The lungs are grossly clear although the left lower lobe is significantly obscured by the heart. There is blunting of the right costophrenic sulcus. No pneumothorax identified.IMPRESSIONMild stable cardiac prominence. Postsurgical changes as described. Small right pleural effusion. A left lower lobe infiltrate or atelectasis is not excluded, partly obscured by the heart.Electronically signed by: ALISON BOLIVAR (Jul 09, 2020 15:29:21)
[2020-07-09 15:40] LABS: BASOPHILS # (AUTO) 0.1 X10^3/uL (0.0-0.1); BASOPHILS % (AUTO) 1.1 % (0.2-1.0); EOSINOPHILS % (AUTO) 0.5 % (0.9-2.9); HEMATOCRIT 32.7 % (36.0-47.0); HEMOGLOBIN 10.8 g/dL (12.0-16.0); LYMPHOCYTES # (AUTO) 0.8 X10^3/uL (1.3-2.9); LYMPHOCYTES % (AUTO) 13.6 % (21.0-51.0); MEAN CORPUSCULAR HEMOGLOBIN 28.8 pg (27.0-34.0); MEAN CORPUSCULAR HGB CONC 32.9 g/dL (33.0-35.0); MEAN CORPUSCULAR VOLUME 87.6 fL (80.0-100.0); MEAN PLATELET VOLUME 7.9 fL (7.4-11.0); MONOCYTES # (AUTO) 0.5 x10^3/uL (0.3-0.8); MONOCYTES % (AUTO) 8.3 % (0.0-13.0); NEUTROPHILS # (AUTO) 4.4 x10^3/uL (2.2-4.8); NEUTROPHILS % (AUTO) 76.5 % (42.0-75.0); PLATELET COUNT 287 X10^3/uL (150.0-450.0); RED BLOOD COUNT 3.73 X10^6/uL (3.5-5.4); RED CELL DISTRIBUTION WIDTH 19.9 % (11.6-16.5); WHITE BLOOD COUNT 5.8 X10^3/uL (3.6-10.0)
[2020-07-09 15:55] LABS: BLOOD UREA NITROGEN 15 mg/dL (7-18); CALCIUM 8.8 mg/dL (8.5-10.1); CARBON DIOXIDE 28.2 mmol/L (21-32); CHLORIDE 86 mmol/L (98-107); COR NA(FOR HYPERGLY) 121 mmol/L (136-145); CREATININE 1.54 mg/dL (0.55-1.02); TROPONIN I < 0.02 ng/mL (0-1.5); eGFR NON BLACK RACES 34 (>60)
[2020-07-09 15:56] LABS: SODIUM 120 mmol/L (136-145)
[2020-07-09] MEDS ORDERED: ASPIRIN PO ONE (16:00)
[2020-07-09] MEDS ORDERED: ASPIRIN ONE (16:23)
[2020-07-09 17:20] LABS: CKMB % 2.7 % (<4); CREATINE KINASE 82 Units/L (26-192); CREATINE KINASE MB 2.2 ng/mL (0-4.0); TROPONIN I < 0.02 ng/mL (0-1.5)
[2020-07-09] MEDS: NS 1000 ML 1,000 ML IV SCH (18:35)
[2020-07-09] MEDS ORDERED: RESTORIL CAP 15 MG PO PRN (22:56)
[2020-07-10 00:02] LABS: CKMB % 2.7 % (<4); CREATINE KINASE 75 Units/L (26-192); TROPONIN I < 0.02 ng/mL (0-1.5)
[2020-07-10] MEDS: NS 1000 ML 1,000 ML IV SCH ×3 (03:10→09:15)
[2020-07-10 05:56] LABS: BLOOD UREA NITROGEN 11 mg/dL (7-18); CALCIUM 8.3 mg/dL (8.5-10.1); CARBON DIOXIDE 26.3 mmol/L (21-32); CHLORIDE 87 mmol/L (98-107); CREATININE 1.08 mg/dL (0.55-1.02); eGFR NON BLACK RACES 51 (>60)
[2020-07-10 06:04] LABS: SODIUM 123 mmol/L (136-145)
[2020-07-10] MEDS ORDERED: ELIQUIS PO SCH (13:30)
[2020-07-10 13:32] VITALS: BP 148/63
[2020-07-10] MEDS ORDERED: LIPITOR TAB 20 MG PO SCH (14:00)
[2020-07-10] MEDS ORDERED: LASIX PO SCH (14:00)
[2020-07-10] MEDS ORDERED: K-DUR TAB 20 MEQ PO SCH (14:00)
[2020-07-11] MEDS ORDERED: COZAAR PO SCH (09:00)
== END 2020-07-10 14:37 | disposition home or self-care (01) | DRG 309 ==
LOC: ER 14:52 → INTOOBSV 16:40 → OBS 16:40
PROVIDERS: ADMIT Obstetrics & Gynecology Obstetrics; ATTEND Obstetrics & Gynecology Obstetrics

== ENCOUNTER 2020-07-18 12:50 | Inpatient (IN) ==
[2020-07-18] MEDS ORDERED: NS 1000 ML 1,000 ML IV STA (14:41)
--- NOTE | 2020-07-18 14:41 | DR.GENAD ---
HPI Time Seen Time Seen by Provider: 07/18/20 14:34 PCP Primary Care Physician: Loraine HPI Comment HPI Comment: PATIENT WITH A HISTORY OF CONGESTIVE HEART FAILURE, HYPERTENSION, TESTED POSITIVE FOR COVID END OF APR 2020, HAS HAD GENERALIZED WEAKNESS, POOR ORAL INTAKE WITH DECREASE URINE OUTPUT. HAS HAD EPISODES OF CONFUSION, OCCASIONAL COUGH. DENIES CHEST PAIN, EMESIS OR DIARRHEA Complaint/Symptoms Chief Complaint Doctors Comments: WEAKNESS, CONFUSION POOR ORAL INTAKE Chief Complaint:: Family states pt has decreased appetite since she had covid in April. Pt has had negative swab in May. Family also states pt has periods of confusion since having covid. COVID-19 Coronavirus risk:travel/contact w/high risk person: No Has patient experienced Coronavirus symptoms: No Source History Provided: Patient Mode of Arrival Mode of Arrival: Ambulatory Timing Onset of Chief Complaint: 05/17/20 PMH PMH Past Medical History: Yes Past Medical History: Coronary Artery Disease, Dyslipidemia and Hypertension Past Surgical History: Yes Surgical History: CABG/Valve Surgery, Tonsillectomy and Other Family History History of Family Medical Conditions: Yes Family Medical History: Hypertension Social History Does patient currently use any type of tobacco product: No Have you used tobacco products in the last 12 months: No Type of Tobacco Use: None Does any household member use tobacco: No Alcohol Use: None Do you use any recreational Drugs:: No Lives With: Family Lives Where: Home Travel Risk Coronavirus risk:travel/contact w/high risk person: No Has patient experienced Coronavirus symptoms: No Infectious screening In the last 2 months have you had wt loss of >10#?: NO Have you had fever, night sweats or hemotysis?: No Have you traveled outside the country in the last 6 months?: No Isolation: Standard ROS Review of Systems Constitutional: See HPI Eyes: No Symptoms Reported ENTM: No Symptoms Reported Respiratoy: No Symptoms Reported Cardiovascular: No Symptoms Reported Gastrointestinal/Abdominal: No Symptoms Reported Genitourinary: No Symptoms Reported Neurological: See HPI Musculoskeletal: No Symptoms Reported Integumentary: No Symptoms Reported Hematologic/Lymphatic: No Symptoms Reported Endocrine: No Symptoms Reported Psychiatric: No Symptoms Reported All Other Systems: Reviewed and Negative PE Vital Signs Vitals: Temperature 96.9 F Pulse Rate 72 Respiratory Rate 16 Blood Pressure [Right Arm] 148/63 Blood Pressure 142/64 O2 Sat by Pulse Oximetry 93 General Limitations: No Limitations General Appearance: Alert and In No Apparent Distress Head Head Exam: Normal Inspection Eyes Eye exam: Normal Appearance, PERRL and EOMI ENT ENT Exam: Normal Exam and Normal Oropharynx External Ear Exam: Normal External Inspection TM/Canal Exam: Bilateral: Normal Nose Exam: Normal Nose Exam Mouth Exam: Normal Inspection Throat Exam: Normal Inspection Neck Neck Exam: Normal Inspection Chest Chest Inspection: Normal Inspection Respiratory Respiratory Exam: Normal Lung Sounds Bilat Respiratory Exam: Bilateral: Clear to Auscultation Cardiovascular Cardiovascular Exam: Regular Rate and Normal Rhythm Abdominal Exam Abdominal Exam: Normal Inspection, Normal Bowel Sounds and Soft Extremities Extremities Exam: Normal Inspection Back Back Exam: Normal Inspection Neurologic Neurological Exam: Alert and Oriented X3 Psychiatric Psychiatric Exam: Normal Affect and Normal Mood Skin Skin Exam: Warm, Dry, Intact and Normal Color MDM Additional Information Additional Information Obtained From: Old Records and Family Differential Diagnosis Differential Diagnosis: DEHYDRATION, ALTERED MENTAL STATUS, ACUTE RENAL INSUFFICIENCY COURSE Treatment Treatment: IV NORMAL SALINE 125ML/KHR Consultation Call Returned: 21:20 Consultation Comments: DISCUSSED WITH DR FERREIRA AT 2120 FOR ADMISSION [facility] Labs Reviewed Laboratory Results Reviewed?: Yes Result Diagrams: 07/18/20 15:04 07/18/20 15:04 Laboratory: WBC 6.1 X10^3/uL (3.6-10.0) 07/18/20 15:04 RBC 3.75 X10^6/uL (3.5-5.4) 07/18/20 15:04 Hgb 11.1 g/dL (12.0-16.0) L 07/18/20 15:04 Hct 32.5 % (36.0-47.0) L 07/18/20 15:04 MCV 86.6 fL (80.0-100.0) 07/18/20 15:04 MCH 29.6 pg (27.0-34.0) 07/18/20 15:04 MCHC 34.2 g/dL (33.0-35.0) 07/18/20 15:04 RDW 18.4 % (11.6-16.5) H 07/18/20 15:04 Plt Count 220 X10^3/uL (150.0-450.0) 07/18/20 15:04 Plt Count Comment Adequate (ADEQUATE) 07/18/20 15:04 MPV 7.2 fL (7.4-11.0) L 07/18/20 15:04 Neut % (Auto) 78.1 % (42.0-75.0) H 07/18/20 15:04 Lymph % (Auto) 12.3 % (21.0-51.0) L 07/18/20 15:04 [place] % (Auto) 8.1 % (0.0-13.0) 07/18/20 15:04 Eos % (Auto) 0.3 % (0.9-2.9) L 07/18/20 15:04 Baso % (Auto) 1.2 % (0.2-1.0) H 07/18/20 15:04 Neut # (Auto) 4.8 x10^3/uL (2.2-4.8) 07/18/20 15:04 Lymph # (Auto) 0.8 X10^3/uL (1.3-2.9) L 07/18/20 15:04 [place] # (Auto) 0.5 x10^3/uL (0.3-0.8) 07/18/20 15:04 Eos # (Auto) 0.0 x10^3/uL (0.0-0.2) 07/18/20 15:04 Baso # (Auto) 0.1 X10^3/uL (0.0-0.1) 07/18/20 15:04 Absolute Nucleated RBC 0.1 /100WBC 07/18/20 15:04 Total Counted 100 07/18/20 15:04 Neutrophils % (Manual) 83 % (39-76) H 07/18/20 15:04 Lymphocytes % (Manual) 12 % (13-43) L 07/18/20 15:04 Monocytes % (Manual) 5 % (4-9) 07/18/20 15:04 Plt Morphology Comment Normal (NORMAL) 07/18/20 15:04 RBC Morphology Normal (NORMAL) 07/18/20 15:04 Sodium 128 mmol/L (136-145) L 07/18/20 15:04 Corrected Sodium 129 mmol/L (136-145) L 07/18/20 15:04 Potassium 3.5 mmol/L (3.5-5.1) 07/18/20 15:04 Chloride 91 mmol/L (98-107) L 07/18/20 15:04 Carbon Dioxide 27.7 mmol/L (21-32) 07/18/20 15:04 BUN 41 mg/dL (7-18) H 07/18/20 15:04 Creatinine 4.26 mg/dL (0.55-1.02) H 07/18/20 15:04 Est GFR (MDRD) Af Amer 13 (>60) L 07/18/20 15:04 Est GFR (MDRD) Non-Af 11 (>60) L 07/18/20 15:04 Glucose 130 mg/dL (65-99) H 07/18/20 15:04 Calcium 9.3 mg/dL (8.5-10.1) 07/18/20 15:04 Corrected Calcium TNP 07/18/20 15:04 Magnesium 1.7 mg/dL (1.7-2.9) 07/18/20 21:57 Total Bilirubin 1.30 mg/dL (0.2-1.0) H 07/18/20 15:04 AST 26 Units/L (15-37) 07/18/20 15:04 ALT 19 Units/L (12-78) 07/18/20 15:04 Alkaline Phosphatase 132 Units/L (46-116) H 07/18/20 15:04 Troponin I < 0.02 ng/mL (0-1.5) 07/18/20 15:04 B-Natriuretic Peptide 326 pg/mL (0-79) H 07/18/20 15:04 Total Protein 6.9 g/dL (6.4-8.2) 07/18/20 15:04 Albumin 3.7 g/dL (3.4-5.0) 07/18/20 15:04 Globulin 3.2 g/dL (2.5-4.5) 07/18/20 15:04 Albumin/Globulin Ratio 1.2 Ratio (1.1-2.1) 07/18/20 15:04 Specimen Type Clean catch urine 07/18/20 19:49 Urine Color Straw (YELLOW) 07/18/20 19:49 Urine Appearance Clear (CLEAR) 07/18/20 19:49 Urine pH 5.0 (5.0 - 8.0) 07/18/20 19:49 Ur Specific [place] 1.010 (1.000-1.030) 07/18/20 19:49 Urine Protein Negative (NEGATIVE) 07/18/20 19:49 Urine Glucose (UA) Negative (NEGATIVE) 07/18/20 19:49 Urine Ketones Negative (NEGATIVE) 07/18/20 19:49 Urine Occult Blood 3+ (NEGATIVE) 07/18/20 19:49 Urine Nitrite Negative (NEGATIVE) 07/18/20 19:49 Urine Bilirubin Negative (NEGATIVE) 07/18/20 19:49 Urine Urobilinogen Normal (NORMAL) 07/18/20 19:49 Ur Leukocyte Esterase Negative (NEGATIVE) 07/18/20 19:49 Urine RBC 3-5 /HPF (0-3) A 07/18/20 19:49 Urine WBC 0-2 /HPF (0-5) 07/18/20 19:49 Ur Squamous Epith Cells Negative /HPF (NEGATIVE) 07/18/20 19:49 Urine Bacteria Negative /HPF (NEGATIVE) 07/18/20 19:49 Ur Culture Indicated? No/not indicated 07/18/20 19:49 SARS CoV-2 RNA Rapid NEYDA Negative (NEGATIVE) 07/18/20 17:06 XRAY XRAY Interpreted by: Radiologist (HEAD CT NO ACUT ABNORMALITIES) EKG Rate: 66 Block: None and RBBB Hypertrophy: None ST: Normal and Nonsp (PROLONG QT) Opioid Opioid Risk Tool Age (Daniel box if 16-45): No History of Preadolescent Sexual Abuse: No Total: 0 Total Score Risk Category: Low Risk Copyright: Ramón PERRY predicting aberrant behaviors Diagnosis Discharge Problem: Acute dehydration, Acute renal insufficiency
--- NOTE | 2020-07-18 15:07 | CT ---
HISTORYCONFUSION, prior CABGSTUDYCT brain without IV contrastCOMPARISONNoneTECHNIQUEMultiple axial images of the brain were obtained without IV contrast. Dose reduction techniques including Automated Exposure Control (AEC) and adjustment of mA and kV were utilized.FINDINGSVisualized portions of the paranasal sinuses and mastoid air cells are clear. No calvarial fracture is seen. No acute intracranial hemorrhage or mass effect is seen. Prominent diffuse volume loss in the brain with compensatory enlargement of the ventricular system. No evidence of acute CVA. Mild chronic small vessel ischemic changes in the periventricular white matter.IMPRESSIONNo acute intracranial abnormalities are seen.Prominent diffuse volume loss is seen with likely mild chronic small vessel ischemic changes in the white matter. Consider possible dementia.Electronically signed by: Ronald Gomes (Jul 18, 2020 15:05:03)
[2020-07-18 15:15] LABS: BASOPHILS # (AUTO) 0.1 X10^3/uL (0.0-0.1); BASOPHILS % (AUTO) 1.2 % (0.2-1.0); EOSINOPHILS % (AUTO) 0.3 % (0.9-2.9); HEMATOCRIT 32.5 % (36.0-47.0); HEMOGLOBIN 11.1 g/dL (12.0-16.0); LYMPHOCYTES # (AUTO) 0.8 X10^3/uL (1.3-2.9); LYMPHOCYTES % (AUTO) 12.3 % (21.0-51.0); MEAN CORPUSCULAR HEMOGLOBIN 29.6 pg (27.0-34.0); MEAN CORPUSCULAR HGB CONC 34.2 g/dL (33.0-35.0); MEAN CORPUSCULAR VOLUME 86.6 fL (80.0-100.0); MEAN PLATELET VOLUME 7.2 fL (7.4-11.0); MONOCYTES # (AUTO) 0.5 x10^3/uL (0.3-0.8); MONOCYTES % (AUTO) 8.1 % (0.0-13.0); NEUTROPHILS # (AUTO) 4.8 x10^3/uL (2.2-4.8); NEUTROPHILS % (AUTO) 78.1 % (42.0-75.0); PLATELET COUNT 220 X10^3/uL (150.0-450.0); RED BLOOD COUNT 3.75 X10^6/uL (3.5-5.4); RED CELL DISTRIBUTION WIDTH 18.4 % (11.6-16.5); WHITE BLOOD COUNT 6.1 X10^3/uL (3.6-10.0)
[2020-07-18 15:37] LABS: ALANINE AMINOTRANSFERASE 19 Units/L (12-78); ALBUMIN 3.7 g/dL (3.4-5.0); ALKALINE PHOSPHATASE 132 Units/L (46-116); ASPARTATE AMINO TRANSFERASE 26 Units/L (15-37); BLOOD UREA NITROGEN 41 mg/dL (7-18); CALCIUM 9.3 mg/dL (8.5-10.1); CARBON DIOXIDE 27.7 mmol/L (21-32); CHLORIDE 91 mmol/L (98-107); COR NA(FOR HYPERGLY) 129 mmol/L (136-145); CREATININE 4.26 mg/dL (0.55-1.02); SODIUM 128 mmol/L (136-145); TOTAL PROTEIN 6.9 g/dL (6.4-8.2); TROPONIN I < 0.02 ng/mL (0-1.5); eGFR NON BLACK RACES 11 (>60)
[2020-07-18 15:39] LABS: PLATELET MORPHOLOGY COMMENT NORMAL (NORMAL)
[2020-07-18] MEDS ORDERED: NS 1000 ML 1,000 ML ONE (16:07)
[2020-07-18 19:59] LABS: BILIRUBIN,URINE NEGATIVE (NEGATIVE); BLOOD/HEMOGLOBIN,URINE 3+ (NEGATIVE); GLUCOSE, URINE NEGATIVE (NEGATIVE); KETONES,URINE NEGATIVE (NEGATIVE); LEUKOCYTE ESTERASE ,URINE NEGATIVE (NEGATIVE); NITRITES,URINE NEGATIVE (NEGATIVE); PROTEIN,URINE NEGATIVE (NEGATIVE); UROBILINOGEN,URINE NORMAL (NORMAL)
[2020-07-18 20:09] LABS: APPEARANCE,URINE CLEAR (CLEAR); BACTERIA,URINE NEGATIVE /HPF (NEGATIVE); COLOR,URINE STRAW (YELLOW); SQUAMOUS EPITHELIAL CELL,UR NEGATIVE /HPF (NEGATIVE)
[2020-07-19 02:44] VITALS: BMI 27.4
[2020-07-19] MEDS ORDERED: ULTRAM PO PRN (02:55)
--- NOTE | 2020-07-19 04:12 | RAD ---
PROCEDURE: Chest X-ray 1 View .HISTORY: Family states pt has decreased appetite since she had covid in April. Pt has had negative swab in May. Family also states pt has periods of confusion since having covid. .TECHNIQUE: AP view .COMPARISON: 07/09/2020.TECHNICAL QUALITY: Satisfactory .FINDINGS:Unchanged mild cardiomegaly with previous cardiac bypass surgery.Mediastinum and hilar regions show no masses or lymphadenopathy .Normal central vascularity .No pulmonary consolidation, masses, pleural fluid, or pneumothorax .No acute bony abnormality. Previous sternotomy.IMPRESSION:Unchanged mild cardiomegaly.No other evidence of active disease.Electronically signed by: Rylan Stoll (Jul 19, 2020 04:09:51)
[2020-07-19] MEDS ORDERED: NS 1000 ML 1,000 ML ONE ×2 (04:25→11:13)
[2020-07-19] MEDS: NS 1000 ML 1,000 ML IV SCH ×3 (04:42→18:10)
[2020-07-19] MEDS ORDERED: ZOFRAN INJ 4 MG VIAL IVP PRN (07:31)
[2020-07-19] MEDS ORDERED: ZOFRAN INJ 4 MG VIAL ONE (07:32)
[2020-07-19 07:35] LABS: ALANINE AMINOTRANSFERASE 16 Units/L (12-78); ALBUMIN 3.3 g/dL (3.4-5.0); ALKALINE PHOSPHATASE 115 Units/L (46-116); ASPARTATE AMINO TRANSFERASE 21 Units/L (15-37); BLOOD UREA NITROGEN 39 mg/dL (7-18); CALCIUM 8.8 mg/dL (8.5-10.1); CARBON DIOXIDE 25.7 mmol/L (21-32); CHLORIDE 96 mmol/L (98-107); COR CA(FOR HYPOALB) 9.4 mg/dL (8.5-10.1); CREATININE 3.47 mg/dL (0.55-1.02); SODIUM 133 mmol/L (136-145); TOTAL PROTEIN 6.2 g/dL (6.4-8.2); eGFR NON BLACK RACES 13 (>60)
[2020-07-19] MEDS ORDERED: ELIQUIS ONE (08:04)
[2020-07-19] MEDS: ELIQUIS PO SCH ×2 (08:37→20:24)
[2020-07-19] MEDS: LINZESS PO SCH (08:38)
[2020-07-19] MEDS: COZAAR PO SCH (08:38)
[2020-07-19] MEDS: LIPITOR TAB 20 MG PO SCH (08:38)
[2020-07-19] MEDS ORDERED: NS 1000 ML 1,000 ML IV ONE (09:05)
[2020-07-19] MEDS ORDERED: POTASSIUM CHL 40 MEQ/NS 0.45% 500 ML IV PRN (17:50)
[2020-07-19] MEDS ORDERED: MICRO K EXTEN CAP 10 MEQ PO PRN (17:50)
[2020-07-19] MEDS ORDERED: KLOR-CON PO PRN (17:50)
[2020-07-19] MEDS ORDERED: POTASSIUM CHL 60 MEQ/NS 0.45% 500 ML IV PRN (17:50)
[2020-07-19] MEDS ORDERED: POTASSIUM CHLORIDE LIQ 20 MEQ UDC PO PRN (17:50)
[2020-07-19] MEDS ORDERED: K-RIDER 10 MEQ/NS 100 ML 10 MEQ/100 ML BAG IV PRN (17:50)
[2020-07-19] MEDS: K-DUR TAB 20 MEQ PO PRN (18:09)
[2020-07-19] MEDS: MAGNESIUM SULFATE 1 GRAM/100 mL PREMIX 1 GM/100 ML BAG IV PRN (21:45)
[2020-07-20] MEDS: NS 1000 ML 1,000 ML IV SCH ×3 (01:12→19:56)
[2020-07-20] MEDS: MAGNESIUM SULFATE 1 GRAM/100 mL PREMIX 1 GM/100 ML BAG IV PRN ×3 (01:16→06:00)
[2020-07-20 06:13] LABS: BASOPHILS # (AUTO) 0.1 X10^3/uL (0.0-0.1); BASOPHILS % (AUTO) 2.2 % (0.2-1.0); EOSINOPHILS # (AUTO) 0.1 x10^3/uL (0.0-0.2); EOSINOPHILS % (AUTO) 1.2 % (0.9-2.9); HEMATOCRIT 30.3 % (36.0-47.0); HEMOGLOBIN 10.2 g/dL (12.0-16.0); LYMPHOCYTES # (AUTO) 0.8 X10^3/uL (1.3-2.9); LYMPHOCYTES % (AUTO) 17.7 % (21.0-51.0); MEAN CORPUSCULAR HEMOGLOBIN 29.4 pg (27.0-34.0); MEAN CORPUSCULAR HGB CONC 33.7 g/dL (33.0-35.0); MEAN CORPUSCULAR VOLUME 87.1 fL (80.0-100.0); MEAN PLATELET VOLUME 7.5 fL (7.4-11.0); MONOCYTES # (AUTO) 0.5 x10^3/uL (0.3-0.8); MONOCYTES % (AUTO) 10.5 % (0.0-13.0); NEUTROPHILS # (AUTO) 3.2 x10^3/uL (2.2-4.8); NEUTROPHILS % (AUTO) 68.4 % (42.0-75.0); PLATELET COUNT 199 X10^3/uL (150.0-450.0); RED BLOOD COUNT 3.48 X10^6/uL (3.5-5.4); RED CELL DISTRIBUTION WIDTH 18.6 % (11.6-16.5); WHITE BLOOD COUNT 4.6 X10^3/uL (3.6-10.0)
[2020-07-20 06:34] LABS: ALANINE AMINOTRANSFERASE 15 Units/L (12-78); ALBUMIN 3.2 g/dL (3.4-5.0); ALKALINE PHOSPHATASE 108 Units/L (46-116); ASPARTATE AMINO TRANSFERASE 22 Units/L (15-37); BLOOD UREA NITROGEN 27 mg/dL (7-18); CALCIUM 8.6 mg/dL (8.5-10.1); CARBON DIOXIDE 24.8 mmol/L (21-32); CHLORIDE 101 mmol/L (98-107); COR CA(FOR HYPOALB) 9.2 mg/dL (8.5-10.1); CREATININE 2.12 mg/dL (0.55-1.02); MAGNESIUM 2.8 mg/dL (1.7-2.9); SODIUM 138 mmol/L (136-145); TOTAL PROTEIN 6.1 g/dL (6.4-8.2); eGFR NON BLACK RACES 24 (>60)
[2020-07-20] MEDS: LIPITOR TAB 20 MG PO SCH (08:59)
[2020-07-20] MEDS: COZAAR PO SCH (08:59)
[2020-07-20] MEDS: ELIQUIS PO SCH ×2 (08:59→20:03)
[2020-07-20] MEDS: K-DUR TAB 20 MEQ PO PRN ×2 (08:59→21:49)
[2020-07-20] MEDS: LINZESS PO SCH (08:59)
[2020-07-21] MEDS: NS 1000 ML 1,000 ML IV SCH ×2 (02:16→08:42)
[2020-07-21 06:08] LABS: BASOPHILS % (AUTO) 0.3 % (0.2-1.0); EOSINOPHILS # (AUTO) 0.1 x10^3/uL (0.0-0.2); EOSINOPHILS % (AUTO) 2.2 % (0.9-2.9); HEMATOCRIT 28.4 % (36.0-47.0); HEMOGLOBIN 9.6 g/dL (12.0-16.0); LYMPHOCYTES # (AUTO) 0.9 X10^3/uL (1.3-2.9); LYMPHOCYTES % (AUTO) 14.2 % (21.0-51.0); MEAN CORPUSCULAR HEMOGLOBIN 29.6 pg (27.0-34.0); MEAN CORPUSCULAR HGB CONC 33.9 g/dL (33.0-35.0); MEAN CORPUSCULAR VOLUME 87.2 fL (80.0-100.0); MEAN PLATELET VOLUME 7.8 fL (7.4-11.0); MONOCYTES # (AUTO) 0.6 x10^3/uL (0.3-0.8); MONOCYTES % (AUTO) 9.5 % (0.0-13.0); NEUTROPHILS # (AUTO) 4.8 x10^3/uL (2.2-4.8); NEUTROPHILS % (AUTO) 73.8 % (42.0-75.0); PLATELET COUNT 170 X10^3/uL (150.0-450.0); RED BLOOD COUNT 3.26 X10^6/uL (3.5-5.4); RED CELL DISTRIBUTION WIDTH 18.6 % (11.6-16.5); WHITE BLOOD COUNT 6.4 X10^3/uL (3.6-10.0)
--- NOTE | 2020-07-21 07:21 | RAD ---
HISTORYShortness of breathSTUDYChest AP [id number] is status post median sternotomy and CABG. The heart is e nlarged. No congestive heart failure is noted. The lungs are well inflated and free of acute infiltra kay. No pleural effusions are identified. Bony thorax is unremarkable.IMPRESSIONContinued cardiomegal y without congestive heart failureLungs well inflated and free of acute infiltratesElectronically sig nishant by: RAGHAVENDRA ARMANDO (Jul 21, 2020 07:19:42)
[2020-07-21 07:35] LABS: ALBUMIN 3.1 g/dL (3.4-5.0); CALCIUM 8.2 mg/dL (8.5-10.1); CARBON DIOXIDE 22.6 mmol/L (21-32); COR CA(FOR HYPOALB) 8.9 mg/dL (8.5-10.1); CREATININE 1.24 mg/dL (0.55-1.02)
[2020-07-21] MEDS: LINZESS PO SCH ×2 (08:40→08:41)
[2020-07-21] MEDS: LIPITOR TAB 20 MG PO SCH (08:41)
[2020-07-21] MEDS: COZAAR PO SCH (08:41)
[2020-07-21] MEDS: ELIQUIS PO SCH (08:41)
[2020-07-21 09:22] VITALS: BP 193/79
[2020-07-21] MEDS ORDERED: K-DUR TAB 20 MEQ PO SCH (10:00)
== END 2020-07-21 11:15 | disposition home or self-care (01) | DRG 292 ==
LOC: ER 12:59 → OBS 07-19 01:19 → MED/SURG 07-19 14:05
PROVIDERS: ADMIT Internal Medicine; ATTEND Obstetrics & Gynecology Obstetrics
DX: I10 Essential (primary) hypertension; R06.02 Shortness of breath; I50.9 Heart failure, unspecified; N17.8 Other acute kidney failure; R26.89 Other abnormalities of gait and mobility; I25.10 Atherosclerotic heart disease of native coronary artery without angina pectoris; R94.31 Abnormal electrocardiogram [ECG] [EKG]; E86.0 Dehydration; B94.8 Sequelae of other specified infectious and parasitic diseases; E78.2 Mixed hyperlipidemia; Z20.822 Contact with and (suspected) exposure to COVID-19

== ENCOUNTER 2020-08-21 08:17 | Observation (INO) ==
[2020-08-21 08:21] VITALS: BMI 23.6
--- NOTE | 2020-08-21 08:39 | DR.GENAD ---
HPI Time Seen Time Seen by Provider: 08/21/20 08:35 PCP Primary Care Physician: LAURA GARCIA Comment HPI Comment: PATIENT IS 84YR OLD FEMALE IN ER WITH GENERALIZED WEAKNESS, DIZZINESS AND BLURRED VISSION SINCE LAST NIGHT. DENIES FEVER, DYSURIA OR DIARRHEA. NAUSEATED BUT NO VOMITING. WALKING MAKES SYMPTOMS WORSE OR EXERTION. DENIES PREVIOUS SIMILAR SYMPTOM. Complaint/Symptoms Chief Complaint Doctors Comments: DIZZINESS, BLURRED VISION AND WEAKNESS SINCE LAST NIGHT. Chief Complaint:: PATIENT CAME TO ER REPORTS DIZZINESS AND BLURRED VISION ONSET LAST PM. COVID-19 Coronavirus risk:travel/contact w/high risk person: No Has patient experienced Coronavirus symptoms: No Source History Provided: Patient and EMS Mode of Arrival Mode of Arrival: Stretcher Timing Onset of Chief Complaint: 08/20/20 Came on: Suddenly Duration Duration: Constant Duration: Hours Severity Severity: Moderate Modifying Factors Worsens:: EXERTION Improves:: REST. Associated Signs and Symptoms Associated Signs and Symptoms: WEAKNESS. Other History Other History: CAD, DIABETES AND HTN. PMH PMH Past Medical History: Yes Past Medical History: Coronary Artery Disease, Diabetes, Hypertension and Kidney Stones Past Surgical History: Yes Surgical History: CABG/Valve Surgery Family History History of Family Medical Conditions: Yes Family Medical History: Diabetes Mellitus, [place] and Hypertension Social History Does patient currently use any type of tobacco product: No Have you used tobacco products in the last 12 months: No Alcohol Use: None Do you use any recreational Drugs:: No Lives With: Alone Lives Where: Home Travel Risk Coronavirus risk:travel/contact w/high risk person: No Has patient experienced Coronavirus symptoms: No Infectious screening In the last 2 months have you had wt loss of >10#?: NO Have you had fever, night sweats or hemotysis?: No Have you traveled outside the country in the last 6 months?: No Isolation: Standard ROS Review of Systems Constitutional: Weakness and Fatigue; negative Fever Eyes: See HPI and Blurred Vision; negative Photophobia and Diplopia ENTM: No Symptoms Reported and See HPI; negative Nose Congestion Respiratoy: See HPI and Short of Breath (ON EXERTION); negative Wheezing Cardiovascular: No Symptoms Reported and See HPI; negative Chest Pain Gastrointestinal/Abdominal: See HPI and Nausea; negative Abdominal Pain, Diarrhea and Vomiting Genitourinary: No Symptoms Reported and See HPI; negative Dysuria Neurological: See HPI, Weakness and Dizziness; negative Headache Musculoskeletal: No Symptoms Reported and See HPI; negative Back Pain and Muscle Pain Integumentary: No Symptoms Reported and See HPI; negative Change in Color, Rash and Juandice Hematologic/Lymphatic: No Symptoms Reported and See HPI; negative Easy Bruising and Swollen Glands Endocrine: No Symptoms Reported and See HPI; negative Increased Thirst and Increased Urine Psychiatric: No Symptoms Reported and See HPI All Other Systems: Reviewed and Negative PE Vital Signs Vitals: Temperature 98.1 F Pulse Rate 54 Respiratory Rate 12 Blood Pressure [Right Arm] 148/65 Blood Pressure [Left Arm] 134/64 Blood Pressure 148/66 O2 Sat by Pulse Oximetry 95 General Limitations: No Limitations General Appearance: Alert and In Distress (ROLON.) Head Head Exam: Normal Inspection and Atraumatic Eyes Eye exam: Normal Appearance and PERRL; negative Scleral Icterus and Conjunctival Injection ENT ENT Exam: Normal Exam, Normal Oropharynx, Normal External Ear Exam and TM's Normal Bilaterally External Ear Exam: Normal External Inspection; negative Mastoid Tenderness TM/Canal Exam: Bilateral: Normal Nose Exam: Normal Nose Exam Mouth Exam: Normal Inspection; negative Lip Swelling and Tongue Swelling Throat Exam: Normal Inspection; negative Tonsillar Erythema, Tonsillomegaly and Tonsillar Exudate Neck Neck Exam: Normal Inspection and Trachea Midline; negative Tenderness and Lymphadenopathy Chest Chest Inspection: Normal Inspection; negative Symmetric Chest Wall Rise and Tenderness Respiratory Respiratory Exam: Respiratory Distress; negative Accessory Muscle Use and Chest Wall Tenderness Respiratory Exam: Bilateral: Rhonchi and Lower: Rhonchi Cardiovascular Cardiovascular Exam: Regular Rate, Normal Rhythm and Normal Heart Sounds; nega tive Systolic Murmur and Diastolic Murmur Abdominal Exam Abdominal Exam: Normal Inspection, Normal Bowel Sounds and Soft; negative Tenderness Extremities Extremities Exam: Normal Inspection and Normal Capillary Refill; negative Tenderness, Edema and Calf Tenderness Back Back Exam: negative (R) CVA Tenderness and (L) CVA Tenderness Neurologic Neurological Exam: Alert and Oriented X3; negative Motor Sensory Deficit Psychiatric Psychiatric Exam: Normal Affect and Normal Mood Skin Skin Exam: Dry MDM Differential Diagnosis Differential Diagnosis: CVA, LABYRINTHITIS, VERTIGO, TX, PNEUMONIA, UTI. COURSE Treatment Treatment: SEE ORDERS. NS 1L IV BOLUS, MACROBID 100MG PO. Consultation Consultation Comments: DISCUSSED PATIENT WITH DR. SANCHEZ. HE WILL ADMIT PATIENT. Education/Counseling Education/Counseling: Patient Educated On: Diagnosis ROR Labs Reviewed Laboratory Results Reviewed?: Yes Result Diagrams: 08/25/20 05:39 08/25/20 05:39 Laboratory: 08/21/20 08:45 Urine,Clean Catch Urine Culture - Final WBC 4.7 X10^3/uL (3.6-10.0) 08/21/20 08:43 RBC 3.56 X10^6/uL (3.5-5.4) 08/21/20 08:43 Hgb 10.7 g/dL (12.0-16.0) L 08/21/20 08:43 Hct 30.7 % (36.0-47.0) L 08/21/20 08:43 MCV 86.3 fL (80.0-100.0) 08/21/20 08:43 MCH 29.9 pg (27.0-34.0) 08/21/20 08:43 MCHC 34.6 g/dL (33.0-35.0) 08/21/20 08:43 RDW 17.4 % (11.6-16.5) H 08/21/20 08:43 Plt Count 205 X10^3/uL (150.0-450.0) 08/21/20 08:43 MPV 7.5 fL (7.4-11.0) 08/21/20 08:43 Neut % (Auto) 54.1 % (42.0-75.0) 08/21/20 08:43 Lymph % (Auto) 31.5 % (21.0-51.0) 08/21/20 08:43 [place] % (Auto) 10.8 % (0.0-13.0) 08/21/20 08:43 Eos % (Auto) 2.2 % (0.9-2.9) 08/21/20 08:43 Baso % (Auto) 1.4 % (0.2-1.0) H 08/21/20 08:43 Neut # (Auto) 2.5 x10^3/uL (2.2-4.8) 08/21/20 08:43 Lymph # (Auto) 1.5 X10^3/uL (1.3-2.9) 08/21/20 08:43 [place] # (Auto) 0.5 x10^3/uL (0.3-0.8) 08/21/20 08:43 Eos # (Auto) 0.1 x10^3/uL (0.0-0.2) 08/21/20 08:43 Baso # (Auto) 0.1 X10^3/uL (0.0-0.1) 08/21/20 08:43 Absolute Nucleated RBC 0.1 /100WBC 08/21/20 08:43 Sodium 122 mmol/L (136-145) L* 08/21/20 08:43 Corrected Sodium 122 mmol/L (136-145) L 08/21/20 08:43 Potassium 4.9 mmol/L (3.5-5.1) 08/21/20 08:43 Chloride 89 mmol/L (98-107) L 08/21/20 08:43 Carbon Dioxide 26.4 mmol/L (21-32) 08/21/20 08:43 BUN 21 mg/dL (7-18) H 08/21/20 08:43 Creatinine 2.35 mg/dL (0.55-1.02) H 08/21/20 08:43 Est GFR (MDRD) Af Amer 25 (>60) L 08/21/20 08:43 Est GFR (MDRD) Non-Af 21 (>60) L 08/21/20 08:43 Glucose 114 mg/dL (65-99) H 08/21/20 08:43 Calcium 8.2 mg/dL (8.5-10.1) L 08/21/20 08:43 Corrected Calcium 8.8 mg/dL (8.5-10.1) 08/21/20 08:43 Total Bilirubin 0.90 mg/dL (0.2-1.0) 08/21/20 08:43 AST 33 Units/L (15-37) 08/21/20 08:43 ALT 24 Units/L (12-78) 08/21/20 08:43 Alkaline Phosphatase 101 Units/L (46-116) 08/21/20 08:43 Creatine Kinase 435 Units/L (26-192) H 08/21/20 08:43 CK-MB (CK-2) 11.4 ng/mL (0-4.0) H* 08/21/20 08:43 CK/CKMB % Calc 2.6 % (<4) 08/21/20 08:43 Troponin I < 0.02 ng/mL (0-1.5) 08/21/20 08:43 Total Protein 6.1 g/dL (6.4-8.2) L 08/21/20 08:43 Albumin 3.3 g/dL (3.4-5.0) L 08/21/20 08:43 Globulin 2.8 g/dL (2.5-4.5) 08/21/20 08:43 Albumin/Globulin Ratio 1.2 Ratio (1.1-2.1) 08/21/20 08:43 Specimen Type Clean catch urine 08/21/20 08:45 Urine Color Dark yellow (YELLOW) 08/21/20 08:45 Urine Appearance Slightly hazy (CLEAR) 08/21/20 08:45 Urine pH 5.0 (5.0 - 8.0) 08/21/20 08:45 Ur Specific [place] 1.015 (1.000-1.030) 08/21/20 08:45 Urine Protein 2+ (NEGATIVE) 08/21/20 08:45 Urine Glucose (UA) Negative (NEGATIVE) 08/21/20 08:45 Urine Ketones Negative (NEGATIVE) 08/21/20 08:45 Urine Occult Blood Negative (NEGATIVE) 08/21/20 08:45 Urine Nitrite Negative (NEGATIVE) 08/21/20 08:45 Urine Bilirubin 1+ (NEGATIVE) 08/21/20 08:45 Urine Urobilinogen 2+ (NORMAL) 08/21/20 08:45 Ur Leukocyte Esterase 2+ (NEGATIVE) 08/21/20 08:45 Urine RBC 3-5 /HPF (0-3) A 08/21/20 08:45 Urine WBC 10-20 /HPF (0-5) A 08/21/20 08:45 Ur Squamous Epith Cells Few /HPF (NEGATIVE) 08/21/20 08:45 Other Crystals Few /HPF (NEGATIVE) 08/21/20 08:45 Urine Bacteria 2+ /HPF (NEGATIVE) 08/21/20 08:45 Hyaline Casts Many /LPF (NEGATIVE) 08/21/20 08:45 Ur Culture Indicated? Yes/culture set up 08/21/20 08:45 XRAY XRAY Interpreted by: Radiologist (REPORT NOTED.) and Self EKG Rate: 56 [place]: Normal Rhythm: Afib Block: None and RBBB Hypertrophy: None ST: Lat and Ischemia Opioid Opioid Risk Tool Age (Daniel box if 16-45): No History of Preadolescent Sexual Abuse: No Total: 0 Total Score Risk Category: Low Risk Copyright: Ramón PERRY predicting aberrant behaviors Diagnosis Discharge Problem: Acute hyponatremia, Acute dehydration, Generalized weakness Atrial fibrillation Qualifiers: Atrial fibrillation type: longstanding persistent Qualified Code(s): I48.11 - Longstanding persistent atrial fibrillation UTI (urinary tract infection) Qualifiers: Urinary tract infection type: site unspecified Hematuria presence: with h ematuria Qualified Code(s): N39.0 - Urinary tract infection, site not specified
[2020-08-21 08:52] LABS: BASOPHILS # (AUTO) 0.1 X10^3/uL (0.0-0.1); EOSINOPHILS # (AUTO) 0.1 x10^3/uL (0.0-0.2); MONOCYTES # (AUTO) 0.5 x10^3/uL (0.3-0.8); RED CELL DISTRIBUTION WIDTH 17.4 % (11.6-16.5)
[2020-08-21 08:56] LABS: BASOPHILS % (AUTO) 1.4 % (0.2-1.0); EOSINOPHILS % (AUTO) 2.2 % (0.9-2.9); HEMATOCRIT 30.7 % (36.0-47.0); HEMOGLOBIN 10.7 g/dL (12.0-16.0); LYMPHOCYTES # (AUTO) 1.5 X10^3/uL (1.3-2.9); LYMPHOCYTES % (AUTO) 31.5 % (21.0-51.0); MEAN CORPUSCULAR HEMOGLOBIN 29.9 pg (27.0-34.0); MEAN CORPUSCULAR HGB CONC 34.6 g/dL (33.0-35.0); MEAN CORPUSCULAR VOLUME 86.3 fL (80.0-100.0); MEAN PLATELET VOLUME 7.5 fL (7.4-11.0); MONOCYTES % (AUTO) 10.8 % (0.0-13.0); NEUTROPHILS # (AUTO) 2.5 x10^3/uL (2.2-4.8); NEUTROPHILS % (AUTO) 54.1 % (42.0-75.0); PLATELET COUNT 205 X10^3/uL (150.0-450.0); RED BLOOD COUNT 3.56 X10^6/uL (3.5-5.4); WHITE BLOOD COUNT 4.7 X10^3/uL (3.6-10.0)
--- NOTE | 2020-08-21 09:18 | CT ---
HISTORYSOB, DIZZINESS, BLURRY VISIONSTUDYBRAIN W/O [id number]/22/2021.TECHNIQUEMultiple axial images of the brain were obtained from the skull base to the vertex without administration of IV contrast. Dose reduction techniques including Automated E xposure Control (AEC) and adjustment of mA and kV were utilized.FINDINGSThere is ventricular, as well as, cisternal and sulcal prominence, in addition to, atherosclerotic changes of the proximal intracr anial carotid arteries bilaterally. There are scattered areas of periventricular and subcortical whit e matter hypoattenuation bilaterally which can be seen in the setting of chronic small vessel disease . No acute intraparenchymal hemorrhage or mass can be identified. No extra-axial fluid collections ar e seen. No alteration in the attenuation of the brain parenchyma can be identified to suggest acute o r subacute ischemic change. The extracranial structures are grossly unremarkable.IMPRESSION1. Cerebr al atrophic changes without acute intracranial abnormality or concerning change compared with 021.2. Nonspecific white matter changes which can be seen in the setting of chronic small vessel dise ase.Electronically signed by: LEONEL ESPARZA (Aug 21, 2020 09:16:48)
[2020-08-21 09:32] LABS: ALANINE AMINOTRANSFERASE 24 Units/L (12-78); ALBUMIN 3.3 g/dL (3.4-5.0); ALKALINE PHOSPHATASE 101 Units/L (46-116); ASPARTATE AMINO TRANSFERASE 33 Units/L (15-37); BLOOD UREA NITROGEN 21 mg/dL (7-18); CALCIUM 8.2 mg/dL (8.5-10.1); CARBON DIOXIDE 26.4 mmol/L (21-32); CHLORIDE 89 mmol/L (98-107); CKMB % 2.6 % (<4); COR CA(FOR HYPOALB) 8.8 mg/dL (8.5-10.1); COR NA(FOR HYPERGLY) 122 mmol/L (136-145); CREATINE KINASE 435 Units/L (26-192); CREATININE 2.35 mg/dL (0.55-1.02); TOTAL PROTEIN 6.1 g/dL (6.4-8.2); TROPONIN I < 0.02 ng/mL (0-1.5); eGFR NON BLACK RACES 21 (>60)
[2020-08-21 09:33] LABS: CREATINE KINASE MB 11.4 ng/mL (0-4.0)
[2020-08-21 09:34] LABS: SODIUM 122 mmol/L (136-145)
[2020-08-21 10:02] LABS: BILIRUBIN,URINE 1+ (NEGATIVE); BLOOD/HEMOGLOBIN,URINE NEGATIVE (NEGATIVE); GLUCOSE, URINE NEGATIVE (NEGATIVE); KETONES,URINE NEGATIVE (NEGATIVE); LEUKOCYTE ESTERASE ,URINE 2+ (NEGATIVE); NITRITES,URINE NEGATIVE (NEGATIVE); PROTEIN,URINE 2+ (NEGATIVE); UROBILINOGEN,URINE 2+ (NORMAL)
[2020-08-21 10:05] LABS: APPEARANCE,URINE SLIGHTLY HAZY (CLEAR); COLOR,URINE DARK YELLOW (YELLOW)
[2020-08-21 10:19] LABS: BACTERIA,URINE 2+ /HPF (NEGATIVE); HYALINE CASTS, URINE MANY /LPF (NEGATIVE); SQUAMOUS EPITHELIAL CELL,UR FEW /HPF (NEGATIVE)
[2020-08-21 10:20] LABS: OTHER CRYSTALS,URINE FEW /HPF (NEGATIVE)
--- NOTE | 2020-08-21 11:06 | RAD ---
Chest AP portableIndication: Dizziness.COMPARISONMarch , 221FINDINGSThere is no pneumothorax. There is cardiomegaly with sternotomy change in CABG clips. Monitor leads obscure detail. No large effusion or dense consolidation seen. Left lower lung is obscured somewhat. Chronic interstitial lung changes are again noted.IMPRESSIONProminent heart size and chronic interstitial lung changes without other acute chest process identified. Left lower lung infiltrate difficult to completely excludeElectronically signed by: EUGENE YEUNG (Aug 21, 2020 11:04:41)
[2020-08-21] MEDS ORDERED: NITROSTAT SL PRN (12:24)
[2020-08-21] MEDS ORDERED: NS 1000 ML 1,000 ML ONE (13:23)
[2020-08-21] MEDS: NS 1000 ML 1,000 ML IV SCH (13:33)
[2020-08-21 15:05] LABS: CKMB % 2.6 % (<4); CREATINE KINASE 681 Units/L (26-192); TROPONIN I < 0.02 ng/mL (0-1.5)
[2020-08-21 15:08] LABS: CREATINE KINASE MB 17.8 ng/mL (0-4.0)
[2020-08-21] MEDS: COLACE CAP 100 MG PO SCH (20:24)
[2020-08-21] MEDS: LOPRESSOR TAB 50 MG PO SCH ×2 (20:24→23:24)
[2020-08-21] MEDS: PRADAXA PO SCH (20:24)
[2020-08-21] MEDS: CORDARONE TAB 200 MG PO SCH (20:25)
[2020-08-21] MEDS ORDERED: MACROBID CAP 100 MG EXT REL PO SCH (21:00)
[2020-08-21] MEDS: K-DUR TAB 20 MEQ PO SCH (21:32)
[2020-08-21 21:46] LABS: CKMB % 2.3 % (<4); CREATINE KINASE 546 Units/L (26-192); TROPONIN I < 0.02 ng/mL (0-1.5)
[2020-08-21 21:49] LABS: CREATINE KINASE MB 12.5 ng/mL (0-4.0)
[2020-08-22] MEDS: NS 1000 ML 1,000 ML IV SCH (04:26)
[2020-08-22 06:00] LABS: BASOPHILS % (AUTO) 0.3 % (0.2-1.0); EOSINOPHILS # (AUTO) 0.2 x10^3/uL (0.0-0.2); EOSINOPHILS % (AUTO) 3.2 % (0.9-2.9); HEMATOCRIT 28.6 % (36.0-47.0); HEMOGLOBIN 9.7 g/dL (12.0-16.0); LYMPHOCYTES # (AUTO) 1.7 X10^3/uL (1.3-2.9); LYMPHOCYTES % (AUTO) 32.9 % (21.0-51.0); MEAN CORPUSCULAR HEMOGLOBIN 29.5 pg (27.0-34.0); MEAN CORPUSCULAR VOLUME 86.7 fL (80.0-100.0); MEAN PLATELET VOLUME 7.9 fL (7.4-11.0); MONOCYTES # (AUTO) 0.5 x10^3/uL (0.3-0.8); MONOCYTES % (AUTO) 10.2 % (0.0-13.0); NEUTROPHILS # (AUTO) 2.7 x10^3/uL (2.2-4.8); NEUTROPHILS % (AUTO) 53.4 % (42.0-75.0); PLATELET COUNT 184 X10^3/uL (150.0-450.0); RED CELL DISTRIBUTION WIDTH 17.5 % (11.6-16.5); WHITE BLOOD COUNT 5.1 X10^3/uL (3.6-10.0)
[2020-08-22 06:19] LABS: ALANINE AMINOTRANSFERASE 23 Units/L (12-78); ALBUMIN 2.8 g/dL (3.4-5.0); ALKALINE PHOSPHATASE 87 Units/L (46-116); ASPARTATE AMINO TRANSFERASE 35 Units/L (15-37); BLOOD UREA NITROGEN 22 mg/dL (7-18); CALCIUM 7.7 mg/dL (8.5-10.1); CARBON DIOXIDE 26.2 mmol/L (21-32); CHLORIDE 93 mmol/L (98-107); COR CA(FOR HYPOALB) 8.7 mg/dL (8.5-10.1); CREATININE 1.85 mg/dL (0.55-1.02); MAGNESIUM 1.6 mg/dL (1.7-2.9); SODIUM 126 mmol/L (136-145); TOTAL PROTEIN 5.3 g/dL (6.4-8.2); eGFR NON BLACK RACES 28 (>60)
[2020-08-22] MEDS ORDERED: NS 500 ML IV 500 ML IV ONE (08:33)
[2020-08-22] MEDS ORDERED: LEXAPRO ONE (08:49)
[2020-08-22] MEDS ORDERED: HYDROCHLOROTHIAZIDE 12.5 MG CAP PO SCH (09:00)
[2020-08-22] MEDS: ASPIRIN EC 81 MG PO SCH (09:59)
[2020-08-22] MEDS: PRADAXA PO SCH ×2 (09:59→20:13)
[2020-08-22] MEDS: COLACE CAP 100 MG PO SCH ×2 (10:00→20:11)
[2020-08-22] MEDS ORDERED: SODIUM CHL HYPERTONIC ** 3% ** 500 ML IV NR (10:00)
[2020-08-22] MEDS: LINZESS PO SCH (10:00)
[2020-08-22] MEDS: LIPITOR TAB 20 MG PO SCH (10:02)
[2020-08-22] MEDS: LEXAPRO PO SCH (10:03)
[2020-08-22] MEDS: COZAAR PO SCH (10:03)
[2020-08-22] MEDS: FLORINEF PO SCH (10:04)
[2020-08-22] MEDS: LYRICA CAP 75 mg PO SCH ×2 (10:04→20:14)
[2020-08-22] MEDS: LOPRESSOR TAB 50 MG PO SCH ×2 (10:05→20:14)
[2020-08-22] MEDS: K-DUR TAB 20 MEQ PO SCH ×2 (10:06→20:13)
[2020-08-22] MEDS: ROCEPHIN 1 GRAM IV PREMIX 1 G/50 ML IV.SOLN. IV SCH (11:29)
[2020-08-22] MEDS: CORDARONE TAB 200 MG PO SCH (20:13)
[2020-08-23] MEDS ORDERED: LEXAPRO ONE (08:10)
[2020-08-23] MEDS: ROCEPHIN 1 GRAM IV PREMIX 1 G/50 ML IV.SOLN. IV SCH (08:27)
[2020-08-23] MEDS: COZAAR PO SCH (08:27)
[2020-08-23] MEDS: PRADAXA PO SCH ×2 (08:27→20:28)
[2020-08-23] MEDS: LIPITOR TAB 20 MG PO SCH (08:27)
[2020-08-23] MEDS: FLORINEF PO SCH (08:27)
[2020-08-23] MEDS: LINZESS PO SCH (08:27)
[2020-08-23] MEDS: COLACE CAP 100 MG PO SCH ×2 (08:28→20:30)
[2020-08-23] MEDS: LEXAPRO PO SCH (08:28)
[2020-08-23] MEDS: LOPRESSOR TAB 50 MG PO SCH ×2 (08:29→20:27)
[2020-08-23] MEDS: ASPIRIN EC 81 MG PO SCH (08:29)
[2020-08-23] MEDS: K-DUR TAB 20 MEQ PO SCH ×2 (08:29→20:28)
[2020-08-23] MEDS: LYRICA CAP 75 mg PO SCH ×2 (08:30→20:35)
[2020-08-23] MEDS ORDERED: SODIUM CHL HYPERTONIC ** 3% ** 500 ML IV SCH (09:00)
[2020-08-23 11:23] LABS: BLOOD UREA NITROGEN 18 mg/dL (7-18); CHLORIDE 98 mmol/L (98-107); CREATININE 1.13 mg/dL (0.55-1.02); SODIUM 130 mmol/L (136-145); eGFR NON BLACK RACES 49 (>60)
[2020-08-23] MEDS ORDERED: SODIUM CHL HYPERTONIC ** 3% ** 500 ML IV NR (16:00)
[2020-08-23] MEDS: NS 1000 ML 1,000 ML IV SCH ×2 (16:24→16:25)
[2020-08-23] MEDS: CORDARONE TAB 200 MG PO SCH (21:05)
[2020-08-24 05:35] LABS: BASOPHILS # (AUTO) 0.1 X10^3/uL (0.0-0.1); BASOPHILS % (AUTO) 2.5 % (0.2-1.0); EOSINOPHILS # (AUTO) 0.2 x10^3/uL (0.0-0.2); EOSINOPHILS % (AUTO) 3.1 % (0.9-2.9); HEMATOCRIT 29.7 % (36.0-47.0); HEMOGLOBIN 9.7 g/dL (12.0-16.0); LYMPHOCYTES # (AUTO) 1.8 X10^3/uL (1.3-2.9); LYMPHOCYTES % (AUTO) 32.4 % (21.0-51.0); MEAN CORPUSCULAR HGB CONC 32.7 g/dL (33.0-35.0); MEAN CORPUSCULAR VOLUME 88.8 fL (80.0-100.0); MONOCYTES # (AUTO) 0.5 x10^3/uL (0.3-0.8); MONOCYTES % (AUTO) 9.7 % (0.0-13.0); NEUTROPHILS % (AUTO) 52.3 % (42.0-75.0); PLATELET COUNT 214 X10^3/uL (150.0-450.0); RED BLOOD COUNT 3.35 X10^6/uL (3.5-5.4); WHITE BLOOD COUNT 5.6 X10^3/uL (3.6-10.0)
[2020-08-24 05:44] LABS: ALANINE AMINOTRANSFERASE 19 Units/L (12-78); ALBUMIN 2.8 g/dL (3.4-5.0); ALKALINE PHOSPHATASE 92 Units/L (46-116); ASPARTATE AMINO TRANSFERASE 25 Units/L (15-37); BLOOD UREA NITROGEN 17 mg/dL (7-18); CALCIUM 7.8 mg/dL (8.5-10.1); CARBON DIOXIDE 23.8 mmol/L (21-32); CHLORIDE 102 mmol/L (98-107); COR CA(FOR HYPOALB) 8.8 mg/dL (8.5-10.1); COR NA(FOR HYPERGLY) 134 mmol/L (136-145); CREATININE 0.97 mg/dL (0.55-1.02); SODIUM 134 mmol/L (136-145); TOTAL PROTEIN 5.5 g/dL (6.4-8.2); eGFR NON BLACK RACES 58 (>60)
[2020-08-24] MEDS ORDERED: LEXAPRO ONE (08:40)
[2020-08-24] MEDS: K-DUR TAB 20 MEQ PO SCH ×2 (08:59→21:10)
[2020-08-24] MEDS: ROCEPHIN 1 GRAM IV PREMIX 1 G/50 ML IV.SOLN. IV SCH (08:59)
[2020-08-24] MEDS: PRADAXA PO SCH ×2 (09:00→21:10)
[2020-08-24] MEDS: COLACE CAP 100 MG PO SCH ×2 (09:00→21:10)
[2020-08-24] MEDS: LYRICA CAP 75 mg PO SCH ×2 (09:00→21:12)
[2020-08-24] MEDS: FLORINEF PO SCH (09:00)
[2020-08-24] MEDS: LINZESS PO SCH (09:01)
[2020-08-24] MEDS: COZAAR PO SCH (09:01)
[2020-08-24] MEDS: LIPITOR TAB 20 MG PO SCH (09:01)
[2020-08-24] MEDS: LEXAPRO PO SCH (09:01)
[2020-08-24] MEDS: ASPIRIN EC 81 MG PO SCH (09:01)
[2020-08-24] MEDS: LOPRESSOR TAB 50 MG PO SCH ×2 (09:02→21:12)
[2020-08-24] MEDS: NS 1000 ML 1,000 ML IV SCH ×2 (18:52)
[2020-08-24] MEDS: CORDARONE TAB 200 MG PO SCH (21:11)
[2020-08-25 06:18] LABS: BASOPHILS # (AUTO) 0.1 X10^3/uL (0.0-0.1); BASOPHILS % (AUTO) 2.8 % (0.2-1.0); EOSINOPHILS # (AUTO) 0.1 x10^3/uL (0.0-0.2); EOSINOPHILS % (AUTO) 2.5 % (0.9-2.9); HEMATOCRIT 28.7 % (36.0-47.0); HEMOGLOBIN 9.3 g/dL (12.0-16.0); LYMPHOCYTES # (AUTO) 1.6 X10^3/uL (1.3-2.9); LYMPHOCYTES % (AUTO) 31.2 % (21.0-51.0); MEAN CORPUSCULAR HEMOGLOBIN 29.3 pg (27.0-34.0); MEAN CORPUSCULAR HGB CONC 32.6 g/dL (33.0-35.0); MEAN CORPUSCULAR VOLUME 89.8 fL (80.0-100.0); MEAN PLATELET VOLUME 7.8 fL (7.4-11.0); MONOCYTES # (AUTO) 0.6 x10^3/uL (0.3-0.8); MONOCYTES % (AUTO) 10.9 % (0.0-13.0); NEUTROPHILS # (AUTO) 2.7 x10^3/uL (2.2-4.8); NEUTROPHILS % (AUTO) 52.6 % (42.0-75.0); PLATELET COUNT 188 X10^3/uL (150.0-450.0); RED BLOOD COUNT 3.19 X10^6/uL (3.5-5.4); RED CELL DISTRIBUTION WIDTH 17.6 % (11.6-16.5); WHITE BLOOD COUNT 5.2 X10^3/uL (3.6-10.0)
[2020-08-25 06:34] LABS: ALANINE AMINOTRANSFERASE 22 Units/L (12-78); ALBUMIN 2.8 g/dL (3.4-5.0); ALKALINE PHOSPHATASE 96 Units/L (46-116); ASPARTATE AMINO TRANSFERASE 28 Units/L (15-37); BLOOD UREA NITROGEN 14 mg/dL (7-18); CARBON DIOXIDE 21.9 mmol/L (21-32); CHLORIDE 103 mmol/L (98-107); COR NA(FOR HYPERGLY) 133 mmol/L (136-145); CREATININE 0.95 mg/dL (0.55-1.02); SODIUM 133 mmol/L (136-145); TOTAL PROTEIN 5.6 g/dL (6.4-8.2); eGFR NON BLACK RACES 60 (>60)
[2020-08-25] MEDS: NS 1000 ML 1,000 ML IV SCH (08:02)
[2020-08-25] MEDS ORDERED: LEXAPRO ONE (09:09)
[2020-08-25] MEDS: ROCEPHIN 1 GRAM IV PREMIX 1 G/50 ML IV.SOLN. IV SCH (09:23)
[2020-08-25] MEDS: PRADAXA PO SCH (09:23)
[2020-08-25] MEDS: COLACE CAP 100 MG PO SCH (09:23)
[2020-08-25] MEDS: LINZESS PO SCH (09:24)
[2020-08-25] MEDS: FLORINEF PO SCH (09:24)
[2020-08-25] MEDS: ASPIRIN EC 81 MG PO SCH (09:24)
[2020-08-25] MEDS: COZAAR PO SCH (09:24)
[2020-08-25] MEDS: LOPRESSOR TAB 50 MG PO SCH (09:26)
[2020-08-25] MEDS: LEXAPRO PO SCH (09:34)
[2020-08-25] MEDS: LIPITOR TAB 20 MG PO SCH (09:35)
[2020-08-25] MEDS: LYRICA CAP 75 mg PO SCH (09:36)
[2020-08-25] MEDS ORDERED: MICRO K EXTEN CAP 10 MEQ PO SCH (10:00)
[2020-08-25 11:21] VITALS: BP 136/60
== END 2020-08-25 12:20 ==
LOC: MED/SURG 08:17 → ER 08:17 → MED/SURG 13:47
PROVIDERS: ADMIT Obstetrics & Gynecology Obstetrics; ATTEND Obstetrics & Gynecology Obstetrics
DX: E87.1 Hypo-osmolality and hyponatremia; E86.0 Dehydration; R26.89 Other abnormalities of gait and mobility; R94.31 Abnormal electrocardiogram [ECG] [EKG]; Z20.822 Contact with and (suspected) exposure to COVID-19; R42 Dizziness and giddiness; H53.8 Other visual disturbances; I48.91 Unspecified atrial fibrillation; E11.65 Type 2 diabetes mellitus with hyperglycemia; I25.10 Atherosclerotic heart disease of native coronary artery without angina pectoris; N39.0 Urinary tract infection, site not specified; I10 Essential (primary) hypertension

== ENCOUNTER 2022-07-30 13:01 | Observation (INO) ==
--- NOTE | 2022-07-30 13:24 | EKG ---
Test Reason : CHEST PAIN Blood Pressure : */* mmHG Vent. Rate : 79 BPM Atrial Rate : * BPM P-R Int : * ms QRS Dur : 144 ms QT Int : 434 ms P-R-T Axes : * -4 -6 degrees QTc Int : 497 ms Normal sinus rhythm with 1st degree AV block PAC's Right bundle branch block T wave abnormality, consider lateral ischemia Abnormal ECG No previous ECGs available Confirmed by Thad Ann ([id number]) on 07/30/2022 5:39:57 PM Referred By: Confirmed By: Thad Ann
--- NOTE | 2022-07-30 13:33 | DR.CP ---
HPI Time Seen Time Seen by Provider: 07/30/22 13:32 PCP Primary Care Physician: DR SANCHEZ Complaint Chief Complaint:: PT C/O INTERMITTENT SHARP STABBING PAIN IN THE LEFT CHEST WALL X 2-3 DAYS ASSOCIATED WITH EXERTIONAL SHORTNESS OF BREATH AND NONPRODUCTIVE COUGH. PAIN WAS WORSE THIS MORNING AND PT'S QUILT MAKER INSTRUCTED HER TO COME TO ED. Self Treatment fo Chief Complaint: PT TOOK ASPIRIN 81MG THIS AM AND TOOK NITRO 0.4 MG SL AT 1130 WHICH RELIEVED SYMPTOMS FOR A FEW MINUTES COVID-19 Coronavirus risk:travel/contact w/high risk person: No Has patient experienced Coronavirus symptoms: No Reviewed Nurses Notes Review: Yes Source History Provided: Patient Mode of Arrival Mode of Arrival: Ambulatory Timing Onset of Chief Complaint: 07/27/22 Location Chest Pain Radiation Location: None Associated Signs and Symptoms Associated Signs and Symptoms: Shortness of Breath PMH PMH Past Medical History: Yes Past Medical History: CHF, Dyslipidemia, Hypertension and Hypothyroidism Past Medical History Comment: AFIB Past Surgical History: Yes Surgical History: CABG/Valve Surgery, Cholecystectomy, Ortho Surgery and Tonsillectomy Past Surgical History Comment: CATARACT REMOVAL, WATCHMAN DEVICE Family History History of Family Medical Conditions: Yes Family Medical History: Diabetes Mellitus and Cancer Social History Does patient currently use any type of tobacco product: No Have you used tobacco products in the last 12 months: No Type of Tobacco Use: None Does any household member use tobacco: No Alcohol Use: None Do you use any recreational Drugs:: No Lives With: Family Lives Where: Home Travel Risk Coronavirus risk:travel/contact w/high risk person: No Has patient experienced Coronavirus symptoms: No Infectious screening In the last 2 months have you had wt loss of >10#?: NO Have you had fever, night sweats or hemotysis?: No Have you traveled outside the country in the last 6 months?: No Isolation: Standard ROS Review of Systems Constitutional: No Symptoms Reported Eyes: No Symptoms Reported ENTM: No Symptoms Reported Respiratoy: No Symptoms Reported Cardiovascular: No Symptoms Reported Gastrointestinal/Abdominal: No Symptoms Reported Genitourinary: No Symptoms Reported Neurological: No Symptoms Reported Musculoskeletal: No Symptoms Reported Integumentary: No Symptoms Reported Hematologic/Lymphatic: No Symptoms Reported Endocrine: No Symptoms Reported Psychiatric: No Symptoms Reported PE Vitals Vitals: Temperature 98.0 F Pulse Rate 72 Respiratory Rate 20 Blood Pressure [Right Arm] 148/65 Blood Pressure [Left Arm] 167/73 Blood Pressure 150/68 O2 Sat by Pulse Oximetry 92 General Limitations: No Limitations General Appearance: Alert and In No Apparent Distress Head Head Exam: Normal Inspection Eyes Eye exam: Normal Appearance ENT ENT Exam: Normal Exam Chest Chest Inspection: Normal Inspection Respiratory Respiratory Exam: Normal Lung Sounds Bilat; negative Accessory Muscle Use, Chest Wall Tenderness or Respiratory Distress Cardiovascular Cardiovascular Exam: Regular Rate, Normal Rhythm and Normal Heart Sounds; negative Systolic Murmur or Diastolic Murmur Abdominal Exam Abdominal Exam: Normal Inspection Extremities Extremities Exam: Normal Inspection Back Back Exam: Normal Inspection Neurologic Neurological Exam: Alert Psychiatric Psychiatric Exam: Normal Affect Skin Skin Exam: Intact ROR Labs Reviewed Result Diagrams: 07/31/22 05:16 07/31/22 05:16 Laboratory: WBC 6.1 X10^3/uL (3.6-10.0) 07/30/22 13:30 RBC 3.96 X10^6/uL (3.5-5.4) 07/30/22 13:30 Hgb 11.6 g/dL (12.0-16.0) L 07/30/22 13:30 Hct 34.9 % (36.0-47.0) L 07/30/22 13:30 MCV 88.1 fL (80.0-100.0) 07/30/22 13:30 MCH 29.3 pg (27.0-34.0) 07/30/22 13:30 MCHC 33.3 g/dL (33.0-35.0) 07/30/22 13:30 RDW 16.5 % (11.6-16.5) 07/30/22 13:30 Plt Count 205 X10^3/uL (150.0-450.0) 07/30/22 13:30 MPV 8.8 fL (7.4-11.0) 07/30/22 13:30 Neut % (Auto) 65.7 % (42.0-75.0) 07/30/22 13:30 Lymph % (Auto) 21.8 % (21.0-51.0) 07/30/22 13:30 [place] % (Auto) 9.1 % (0.0-13.0) 07/30/22 13:30 Eos % (Auto) 2.0 % (0.9-2.9) 07/30/22 13:30 Baso % (Auto) 1.4 % (0.2-1.0) H 07/30/22 13:30 Neut # (Auto) 4.0 x10^3/uL (2.2-4.8) 07/30/22 13:30 Lymph # (Auto) 1.3 X10^3/uL (1.3-2.9) 07/30/22 13:30 [place] # (Auto) 0.6 x10^3/uL (0.3-0.8) 07/30/22 13:30 Eos # (Auto) 0.1 x10^3/uL (0.0-0.2) 07/30/22 13:30 Baso # (Auto) 0.1 X10^3/uL (0.0-0.1) 07/30/22 13:30 Absolute Nucleated RBC 0.1 /100WBC 07/30/22 13:30 PT 14.4 SECONDS (11.8-14.3) 07/30/22 13:30 INR Target Range - 07/30/22 13:30 INR 1.16 (0.8-1.3) 07/30/22 13:30 APTT 28.0 SECONDS (22.9-36.5) 07/30/22 13:30 PTT Comment - 07/30/22 13:30 D-Dimer 3.62 ug/ml (0.0-0.57) H 07/30/22 13:30 Sodium 135 mmol/L (136-145) L 07/30/22 13:30 Corrected Sodium 137 mmol/L (136-145) 07/30/22 13:30 Potassium 4.2 mmol/L (3.5-5.1) 07/30/22 13:30 Chloride 100 mmol/L (98-107) 07/30/22 13:30 Carbon Dioxide 30.5 mmol/L (21-32) 07/30/22 13:30 BUN 15 mg/dL (7-18) 07/30/22 13:30 Creatinine 1.40 mg/dL (0.55-1.02) H 07/30/22 13:30 Est GFR (MDRD) Af Amer 46 (>60) L 07/30/22 13:30 Est GFR (MDRD) Non-Af 38 (>60) L 07/30/22 13:30 Glucose 199 mg/dL (65-99) H 07/30/22 13:30 Calcium 8.8 mg/dL (8.5-10.1) 07/30/22 13:30 Corrected Calcium TNP 07/30/22 13:30 Total Bilirubin 0.90 mg/dL (0.2-1.0) 07/30/22 13:30 AST 20 Units/L (15-37) 07/30/22 13:30 ALT 14 Units/L (12-78) 07/30/22 13:30 Alkaline Phosphatase 187 Units/L (46-116) H 07/30/22 13:30 Troponin I High Sens 10.4 ng/L (4.0-60.0) 07/30/22 13:30 Total Protein 6.7 g/dL (6.4-8.2) 07/30/22 13:30 Albumin 3.5 g/dL (3.4-5.0) 07/30/22 13:30 Globulin 3.2 g/dL (2.5-4.5) 07/30/22 13:30 Albumin/Globulin Ratio 1.1 Ratio (1.1-2.1) 07/30/22 13:30 SARS-CoV-2 (PCR) Negative (NEGATIVE) 07/30/22 13:34 Influenza Type A (PCR) Negative (NEGATIVE) 07/30/22 13:34 Influenza Type B (PCR) Negative (NEGATIVE) 07/30/22 13:34 RSV (PCR) Negative (NEGATIVE) 07/30/22 13:34 Opioid Opioid Risk Tool Age (Daniel box if 16-45): No History of Preadolescent Sexual Abuse: No Total: 0 Total Score Risk Category: Low Risk Copyright: Ramón PERRY predicting aberrant behaviors Discharge Plan Diagnosis Discharge Problem: Chest pain Discharge Plan Patient Disposition: ADMITTED INPATIENT Condition: Stable
[2022-07-30 13:42] LABS: BASOPHILS # (AUTO) 0.1 X10^3/uL (0.0-0.1); BASOPHILS % (AUTO) 1.4 % (0.2-1.0); EOSINOPHILS # (AUTO) 0.1 x10^3/uL (0.0-0.2); HEMATOCRIT 34.9 % (36.0-47.0); HEMOGLOBIN 11.6 g/dL (12.0-16.0); LYMPHOCYTES # (AUTO) 1.3 X10^3/uL (1.3-2.9); LYMPHOCYTES % (AUTO) 21.8 % (21.0-51.0); MEAN CORPUSCULAR HEMOGLOBIN 29.3 pg (27.0-34.0); MEAN CORPUSCULAR HGB CONC 33.3 g/dL (33.0-35.0); MEAN CORPUSCULAR VOLUME 88.1 fL (80.0-100.0); MEAN PLATELET VOLUME 8.8 fL (7.4-11.0); MONOCYTES # (AUTO) 0.6 x10^3/uL (0.3-0.8); MONOCYTES % (AUTO) 9.1 % (0.0-13.0); NEUTROPHILS % (AUTO) 65.7 % (42.0-75.0); RED BLOOD COUNT 3.96 X10^6/uL (3.5-5.4); RED CELL DISTRIBUTION WIDTH 16.5 % (11.6-16.5); WHITE BLOOD COUNT 6.1 X10^3/uL (3.6-10.0)
[2022-07-30 13:50] LABS: INR 1.16 (0.8-1.3)
[2022-07-30 14:02] LABS: ALANINE AMINOTRANSFERASE 14 Units/L (12-78); ALBUMIN 3.5 g/dL (3.4-5.0); ALKALINE PHOSPHATASE 187 Units/L (46-116); ASPARTATE AMINO TRANSFERASE 20 Units/L (15-37); BLOOD UREA NITROGEN 15 mg/dL (7-18); CALCIUM 8.8 mg/dL (8.5-10.1); CARBON DIOXIDE 30.5 mmol/L (21-32); CHLORIDE 100 mmol/L (98-107); COR NA(FOR HYPERGLY) 137 mmol/L (136-145); SODIUM 135 mmol/L (136-145); TOTAL PROTEIN 6.7 g/dL (6.4-8.2); eGFR NON BLACK RACES 38 (>60)
--- NOTE | 2022-07-30 15:20 | RAD ---
HISTORYChest painSTUDYPortable AP chestCOMPARISONAugust 2021FINDINGSStable cardiomegaly with postsurgical findings. There is no evidence for localized pneumonia, pulmonary edema or pleural fluid. Slight blunting of the left costophrenic angle is nonspecific.IMPRESSIONCardiomegaly. No acute findings. Pleural deformity left costophrenic angle may represent chronic pleural thickening or minimal effusion.Electronically signed by: ALISON BOLIVAR (Jul 30, 2022 15:18:48)
[2022-07-30 17:57] VITALS: BMI 27.9
--- NOTE | 2022-07-30 19:13 | EKG ---
Test Reason : CP Blood Pressure : */* mmHG Vent. Rate : 66 BPM Atrial Rate : 66 BPM P-R Int : 228 ms QRS Dur : 146 ms QT Int : 476 ms P-R-T Axes : 79 17 11 degrees QTc Int : 499 ms Sinus rhythm with sinus arrhythmia with 1st degree AV block Right bundle branch block Abnormal ECG When compared with ECG of 30-JUL-2022 13:22, No significant change was found Confirmed by Thad Ann ([id number]) on 08/01/2022 6:05:49 PM Referred By: Confirmed By: Thad Ann
[2022-07-30] MEDS ORDERED: BUTT CREAM (COMPOUND) TOP PRN (19:23)
[2022-07-31 06:02] LABS: BASOPHILS # (AUTO) 0.1 X10^3/uL (0.0-0.1); BASOPHILS % (AUTO) 1.1 % (0.2-1.0); EOSINOPHILS # (AUTO) 0.2 x10^3/uL (0.0-0.2); EOSINOPHILS % (AUTO) 4.5 % (0.9-2.9); HEMATOCRIT 31.1 % (36.0-47.0); HEMOGLOBIN 10.5 g/dL (12.0-16.0); LYMPHOCYTES # (AUTO) 1.5 X10^3/uL (1.3-2.9); MEAN CORPUSCULAR HEMOGLOBIN 29.1 pg (27.0-34.0); MEAN CORPUSCULAR HGB CONC 33.6 g/dL (33.0-35.0); MEAN CORPUSCULAR VOLUME 86.6 fL (80.0-100.0); MEAN PLATELET VOLUME 9.2 fL (7.4-11.0); MONOCYTES # (AUTO) 0.7 x10^3/uL (0.3-0.8); MONOCYTES % (AUTO) 12.7 % (0.0-13.0); NEUTROPHILS # (AUTO) 2.7 x10^3/uL (2.2-4.8); NEUTROPHILS % (AUTO) 52.7 % (42.0-75.0); RED BLOOD COUNT 3.59 X10^6/uL (3.5-5.4); RED CELL DISTRIBUTION WIDTH 16.2 % (11.6-16.5); WHITE BLOOD COUNT 5.2 X10^3/uL (3.6-10.0)
[2022-07-31 06:31] LABS: ALANINE AMINOTRANSFERASE 10 Units/L (12-78); ALKALINE PHOSPHATASE 155 Units/L (46-116); ASPARTATE AMINO TRANSFERASE 19 Units/L (15-37); BLOOD UREA NITROGEN 15 mg/dL (7-18); CALCIUM 8.5 mg/dL (8.5-10.1); CARBON DIOXIDE 31.4 mmol/L (21-32); CHLORIDE 101 mmol/L (98-107); COR CA(FOR HYPOALB) 9.3 mg/dL (8.5-10.1); CREATININE 1.18 mg/dL (0.55-1.02); MAGNESIUM 1.9 mg/dL (2.0-2.9); SODIUM 138 mmol/L (136-145); TOTAL PROTEIN 5.8 g/dL (6.4-8.2); eGFR NON BLACK RACES 46 (>60)
[2022-07-31] MEDS ORDERED: PEPCID TAB 40 MG PO PRN (10:15)
[2022-07-31] MEDS ORDERED: MAGNESIUM SULFATE 1 GRAM/100 mL PREMIX 1 G/100 ML BAG IV PRN (10:25)
[2022-07-31] MEDS ORDERED: K-DUR TAB 20 MEQ PO PRN (10:25)
[2022-07-31] MEDS ORDERED: POTASSIUM CHL 60 MEQ/NS 0.45% 500 ML IV PRN (10:25)
[2022-07-31] MEDS ORDERED: MICRO K EXTEN CAP 10 MEQ PO PRN (10:25)
[2022-07-31] MEDS ORDERED: POTASSIUM CHLORIDE LIQ 20 MEQ UDC PO PRN (10:25)
[2022-07-31] MEDS ORDERED: KLOR-CON PO PRN (10:25)
[2022-07-31] MEDS ORDERED: K-RIDER 10 MEQ/NS 100 ML 10 MEQ/100 ML BAG IV PRN (10:25)
[2022-07-31] MEDS ORDERED: POTASSIUM CHL 40 MEQ/NS 0.45% 500 ML IV PRN (10:25)
[2022-07-31] MEDS ORDERED: LOVENOX INJ 40 MG SYR SC SCH (11:00)
[2022-07-31] MEDS ORDERED: CYTOTEC PO SCH (11:00)
[2022-07-31] MEDS ORDERED: CATAPRES TAB 0.1 MG PO ONE (12:51)
[2022-07-31 14:06] VITALS: BP 128/61
== END 2022-07-31 15:00 | disposition home health service (06) ==
LOC: ER 13:01 → MED/SURG 13:01
PROVIDERS: ADMIT Obstetrics & Gynecology Obstetrics; ATTEND Obstetrics & Gynecology Obstetrics
DX: R07.89 Other chest pain; E11.65 Type 2 diabetes mellitus with hyperglycemia; I10 Essential (primary) hypertension; R94.31 Abnormal electrocardiogram [ECG] [EKG]; K92.2 Gastrointestinal hemorrhage, unspecified; R79.1 Abnormal coagulation profile; I25.10 Atherosclerotic heart disease of native coronary artery without angina pectoris; Z20.822 Contact with and (suspected) exposure to COVID-19; E78.2 Mixed hyperlipidemia; E03.8 Other specified hypothyroidism; R06.02 Shortness of breath; I48.91 Unspecified atrial fibrillation

== ENCOUNTER 2023-07-10 19:56 | Observation (INO) ==
--- NOTE | 2023-07-10 20:13 | DR.FBACK ---
HPI Time Seen Time Seen by Provider: 07/10/23 20:05 Complaint Chief Complaint Doctor Comments: Patient presents by ambulance after a fall from standing.Patient was in her home and was attempting to walk to the bathroom when she fell backwards unto the carpeted floor. EMS were called to the scene by a family member and patient was given dilaudid 2mg iv at the scene the transported to the ED.Patient was given supplemental 02 enroute to the ED. Patient c/o:headache,neck and back pain,left thigh pain,left leg pain,abdominal pain,chest pain.Patient denies:loc,n,v,extremity weakness,extremity numbness. PMH PMH Past Medical History: CHF, Dyslipidemia, Hypertension and Hypothyroidism Past Surgical History: Yes Surgical History: CABG/Valve Surgery, Cholecystectomy, Ortho Surgery and Tonsillectomy Family History Family Medical History: Diabetes Mellitus, Cancer and Hypertension Social History Do you use any recreational Drugs:: No ROS Review of Systems Constitutional: No Symptoms Reported Eyes: No Symptoms Reported ENTM: No Symptoms Reported Respiratoy: No Symptoms Reported Cardiovascular: No Symptoms Reported Gastrointestinal/Abdominal: Abdominal Pain; negative Nausea or Vomiting Genitourinary: No Symptoms Reported Neurological: No Symptoms Reported Musculoskeletal: No Symptoms Reported, Back Pain (cervical,thoracic,lumbar), Neck Pain, Pelvis (bilateral) and Leg (L Femur/L Tib-fib) Integumentary: No Symptoms Reported and Change in Color (occipital abrasion( no active bleed)) Hematologic/Lymphatic: No Symptoms Reported Endocrine: No Symptoms Reported Psychiatric: No Symptoms Reported All Other Systems: Reviewed and Negative PE Vitals Vital Signs: Temp Pulse Resp BP Pulse Ox O2 Del Method 07/11/23 02:45 80 95 07/11/23 02:30 75 97 07/11/23 02:30 109/58 07/11/23 02:15 80 98 07/11/23 02:01 78 98 07/11/23 02:01 106/56 07/11/23 02:00 76 98 07/11/23 01:45 79 96 07/11/23 01:30 81 96 07/11/23 01:30 122/58 07/11/23 01:15 77 97 07/11/23 01:00 124/60 07/11/23 01:00 79 97 07/11/23 00:45 75 97 07/11/23 00:30 73 97 07/11/23 00:15 76 97 07/11/23 00:00 80 96 07/11/23 00:00 102/61 07/10/23 23:45 84 96 07/10/23 23:31 89 95 07/10/23 23:31 116/58 07/10/23 23:30 93 H 96 07/10/23 23:15 90 94 L 07/10/23 23:04 91 H 96 07/10/23 23:04 102/54 07/10/23 23:00 74 96 07/10/23 22:45 79 96 07/10/23 22:30 81 95 07/10/23 22:15 83 96 07/10/23 22:00 81 97 07/10/23 21:45 83 97 07/10/23 21:38 85 96 07/10/23 19:57 98.2 F 102 H 18 128/61 98 Nasal Cannula General Limitations: No Limitations General Appearance: Alert and In No Apparent Distress Head Head Exam: Normal Inspection Eyes Eye exam: Normal Appearance ENT ENT Exam: Normal Exam Chest Chest Inspection: Normal Inspection Respiratory Respiratory Exam: Normal Lung Sounds Bilat and Chest Wall Tenderness (Posterior thorax Bilat) Respiratory Exam: Bilateral: Clear to Auscultation Cardiovascular Cardiovascular Exam: Regular Rate and Normal Rhythm Abdominal Exam Abdominal Exam: Normal Inspection, Soft, Tenderness and Hypoactive Bowel Sounds Abdominal Tenderness: Diffuse Genitourinary External Exam: Female: Deferred : Speculum Exam (Female): Deferred : Bimanual Exam (female): Deferred Extremities Extremities Exam: Normal Inspection Back Back Exam: (R) CVA Tenderness and (L) Straight Leg Raise (tenderness L femur and tib-fib with straight leg raise) Neurological Neurological Exam: Alert and Oriented X3 Psychiatric Psychiatric Exam: Normal Affect and Normal Mood Skin Skin Exam: Warm, Dry, Intact and Other (superficial abrasion occiput(no active bleed)) MDM Differential Diagnosis Differential Diagnosis: Fracture (DDx:Closed head injury,Fx/gkbwngiuwgjD-H-C spine,fx-femur,tib-fib,Chest trauma,Abdltrauma,uti) COURSE Treatment Treatment: Patient was brought to an exam room.Her 02 sat was 90% on 2L and I increased supplemental 02 to 3L and patient subsequently had sat 94%. Patient was GCS 15. Labs and tests were ordered after exam.Patient's Head CT revealed small scalp hematoma no fractures,no intracranial bleed,Cervical spine and Chest CTs w/o contrast did not reveal fx or subluxation,no ptx,satish or contusion,. Patient abdl ct w/o contrast revealed L2 anterior wedge compression fracture with 30% height loss and mild pulmonary infiltrates at the lung bases that could represent early pneumonia.Left femur and Left tib-fib xrays did not reveal fx or dislocation. 01:[address] Garcia at [facility] .Dr Garcia states that this lumbar injury is managed with pain control.He states that an Appt could be made at the office on saturday for further evaluation. 01:[address] Escobar. He has accepted patient to his service for further evaluation.Patient rteceived Rocephin 1 gram iv for UTI and Pneumonia. Patient will be given hydrocodone 7.5mg QID for pain. Patient's Granddaughter Flora Mejía is the field contact person: [phone]. Patient has been stable in the ED.Patient lives by herself and takes care of her needs for herself. [facility] Labs Reviewed 07/10/23 20:53 07/10/23 20:53 Laboratory: WBC 11.3 X10^3/uL (3.6-10.0) H 07/10/23 20:53 RBC 4.03 X10^6/uL (3.5-5.4) 07/10/23 20:53 Hgb 11.9 g/dL (12.0-16.0) L 07/10/23 20:53 Hct 36.2 % (36.0-47.0) 07/10/23 20:53 MCV 89.8 fL (80.0-100.0) 07/10/23 20:53 MCH 29.5 pg (27.0-34.0) 07/10/23 20:53 MCHC 32.9 g/dL (33.0-35.0) L 07/10/23 20:53 RDW 16.1 % (11.6-16.5) 07/10/23 20:53 Plt Count 218 X10^3/uL (150.0-450.0) 07/10/23 20:53 MPV 8.7 fL (7.4-11.0) 07/10/23 20:53 Neut % (Auto) 83.5 % (42.0-75.0) H 07/10/23 20:53 Lymph % (Auto) 8.0 % (21.0-51.0) L 07/10/23 20:53 [place] % (Auto) 7.7 % (0.0-13.0) 07/10/23 20:53 Eos % (Auto) 0.4 % (0.9-2.9) L 07/10/23 20:53 Baso % (Auto) 0.4 % (0.2-1.0) 07/10/23 20:53 Neut # (Auto) 9.4 x10^3/uL (2.2-4.8) H 07/10/23 20:53 Lymph # (Auto) 0.9 X10^3/uL (1.3-2.9) L 07/10/23 20:53 [place] # (Auto) 0.9 x10^3/uL (0.3-0.8) H 07/10/23 20:53 Eos # (Auto) 0.0 x10^3/uL (0.0-0.2) 07/10/23 20:53 Baso # (Auto) 0.0 X10^3/uL (0.0-0.1) 07/10/23 20:53 Absolute Nucleated RBC 0.0 /100WBC 07/10/23 20:53 Sodium 135 mmol/L (136-145) L 07/10/23 20:53 Corrected Sodium 136 mmol/L (136-145) 07/10/23 20:53 Potassium 3.8 mmol/L (3.5-5.1) 07/10/23 20:53 Chloride 98 mmol/L (98-107) 07/10/23 20:53 Carbon Dioxide 30.5 mmol/L (21-32) 07/10/23 20:53 BUN 27 mg/dL (7-18) H 07/10/23 20:53 Creatinine 1.49 mg/dL (0.55-1.02) H 07/10/23 20:53 Est GFR (MDRD) Af Amer 43 (>60) L 07/10/23 20:53 Est GFR (MDRD) Non-Af 35 (>60) L 07/10/23 20:53 Glucose 141 mg/dL (65-99) H 07/10/23 20:53 Lactic Acid 0.7 mmol/L (0.4-2.0) 07/10/23 21:04 Calcium 8.0 mg/dL (8.5-10.1) L 07/10/23 20:53 Corrected Calcium 8.6 mg/dL (8.5-10.1) 07/10/23 20:53 Total Bilirubin 1.00 mg/dL (0.2-1.0) 07/10/23 20:53 AST 18 Units/L (15-37) 07/10/23 20:53 ALT 18 Units/L (12-78) 07/10/23 20:53 Alkaline Phosphatase 160 Units/L (46-116) H 07/10/23 20:53 C-Reactive Protein 24.60 mg/L (0-3.0) H 07/10/23 20:53 Total Protein 6.7 g/dL (6.4-8.2) 07/10/23 20:53 Albumin 3.2 g/dL (3.4-5.0) L 07/10/23 20:53 Globulin 3.5 g/dL (2.5-4.5) 07/10/23 20:53 Albumin/Globulin Ratio 0.9 Ratio (1.1-2.1) L 07/10/23 20:53 Amylase 30 Units/L (25-115) 07/10/23 20:53 Lipase 13 Units/L (16-77) L 07/10/23 20:53 Specimen Type Clean catch urine 07/10/23 23:13 Urine Color Yellow (YELLOW) 07/10/23 23:13 Urine Appearance Clear (CLEAR) 07/10/23 23:13 Urine pH 6.0 (5.0 - 8.0) 07/10/23 23:13 Ur Specific [place] 1.015 (1.000-1.030) 07/10/23 23:13 Urine Protein 2+ (NEGATIVE) 07/10/23 23:13 Urine Glucose (UA) Negative (NEGATIVE) 07/10/23 23:13 Urine Ketones Negative (NEGATIVE) 07/10/23 23:13 Urine Blood 3+ (NEGATIVE) 07/10/23 23:13 Urine Nitrite Negative (NEGATIVE) 07/10/23 23:13 Urine Bilirubin Negative (NEGATIVE) 07/10/23 23:13 Urine Urobilinogen 1+ (NORMAL) 07/10/23 23:13 Ur Leukocyte Esterase 3+ (NEGATIVE) 07/10/23 23:13 Urine RBC 0-2 /HPF (0-3) 07/10/23 23:13 Urine WBC 3-5 /HPF (0-5) 07/10/23 23:13 Ur Squamous Epith Cells Rare /HPF (NEGATIVE) 07/10/23 23:13 Amorphous Sediment Trace /HPF (NEGATIVE) 07/10/23 23:13 Urine Bacteria Trace /HPF (NEGATIVE) 07/10/23 23:13 Ur Culture Indicated? No/not indicated 07/10/23 23:13 Urine Opiates Screen Positive (NEG=<300) A 07/10/23 23:13 Urine Methadone Screen Negative (NEG=<300) 07/10/23 23:13 Ur Barbiturates Screen Negative (NEG=<200) 07/10/23 23:13 Ur Phencyclidine Scrn Negative (NEG=<25) 07/10/23 23:13 Ur Amphetamines Screen Negative (NEG=<1000) 07/10/23 23:13 U Benzodiazepines Scrn Negative (NEG=<200) 07/10/23 23:13 Urine Cocaine Screen Negative (NEG=<300) 07/10/23 23:13 U Marijuana (THC) Screen Negative (NEG=<50) 07/10/23 23:13 Ethyl Alcohol mg/dL < 3 mg/dL (0-19.9) 07/10/23 20:53 Opioid Opioid Risk Tool Age (Daniel box if 16-45): No History of Preadolescent Sexual Abuse: No Total: 0 Total Score Risk Category: Low Risk Copyright: Ramón PERRY predicting aberrant behaviors Discharge Plan Diagnosis Discharge Problem: Compression fx, lumbar spine, Pneumonia Discharge Plan Patient Disposition: 09 ADMITTED INPATIENT Condition: Stable Prescriptions: No Action metoprolol tartrate 50 mg tablet 50 mg PO BID pregabalin 100 mg capsule 100 mg PO BID docusate sodium 100 mg Capsule 100 mg PO BID pantoprazole 40 mg tablet,delayed release (DR/EC) 40 mg PO DAILY Qty: 60 0RF nitroglycerin [Nitrostat] 0.4 mg tablet, sublingual 0.4 mg sublingual Q2-5M PRN (Reason: Chest Pain) aspirin 81 mg Tablet,Delayed Release (Dr/Ec) 81 mg PO DAILY hydrocodone-acetaminophen 5-325 mg tablet 1 tab PO BID Patient Comments: TAKE 1 TABLET BY MOUTH THREE TIMES DAILY NEEDED levothyroxine 100 mcg tablet 100 mcg PO DAILY escitalopram oxalate 20 mg tablet 20 mg PO DAILY Linzess 145 mcg capsule 145 mcg PO PRN PRN clonidine HCl 0.1 mg tablet 0.1 mg PO BID MDD 2 PRN atorvastatin 40 mg Tablet 40 mg PO QHS losartan 25 mg Tablet 25 mg PO QDAY furosemide [Lasix] 20 mg Tablet 20 mg PO QMWF Health Concerns: Post Hospitalization: new medications and changes needed to prevent readmission or further decline. Pt educated and given instructions on all concerns. Plan of Treatment: Continue with present treatment and follow up plan. Pt is to keep follow up appointment as instructed and take medications as ordered. Orders to Discharge Patient Discharge Orders: Transfer (Routine); Ordered 07/11/23 Ordered By: Katja Kumari Follow ups/Referrals Follow ups/Referrals: WILLIAM SANCHEZ [Primary Care Provider] - 3 days Instructions Stand Alone Forms: Post Hospital Follow Up Care
[2023-07-10 20:24] VITALS: BMI 27.4
[2023-07-10 21:01] LABS: BASOPHILS % (AUTO) 0.4 % (0.2-1.0); EOSINOPHILS % (AUTO) 0.4 % (0.9-2.9); HEMATOCRIT 36.2 % (36.0-47.0); HEMOGLOBIN 11.9 g/dL (12.0-16.0); LYMPHOCYTES # (AUTO) 0.9 X10^3/uL (1.3-2.9); MEAN CORPUSCULAR HEMOGLOBIN 29.5 pg (27.0-34.0); MEAN CORPUSCULAR HGB CONC 32.9 g/dL (33.0-35.0); MEAN CORPUSCULAR VOLUME 89.8 fL (80.0-100.0); MEAN PLATELET VOLUME 8.7 fL (7.4-11.0); MONOCYTES # (AUTO) 0.9 x10^3/uL (0.3-0.8); MONOCYTES % (AUTO) 7.7 % (0.0-13.0); NEUTROPHILS # (AUTO) 9.4 x10^3/uL (2.2-4.8); NEUTROPHILS % (AUTO) 83.5 % (42.0-75.0); PLATELET COUNT 218 X10^3/uL (150.0-450.0); RED BLOOD COUNT 4.03 X10^6/uL (3.5-5.4); RED CELL DISTRIBUTION WIDTH 16.1 % (11.6-16.5); WHITE BLOOD COUNT 11.3 X10^3/uL (3.6-10.0)
[2023-07-10 21:14] LABS: ALANINE AMINOTRANSFERASE 18 Units/L (12-78); ALBUMIN 3.2 g/dL (3.4-5.0); ALKALINE PHOSPHATASE 160 Units/L (46-116); AMYLASE 30 Units/L (25-115); ASPARTATE AMINO TRANSFERASE 18 Units/L (15-37); BLOOD ALCOHOL < 3 mg/dL (0-19.9); BLOOD UREA NITROGEN 27 mg/dL (7-18); CARBON DIOXIDE 30.5 mmol/L (21-32); CHLORIDE 98 mmol/L (98-107); COR CA(FOR HYPOALB) 8.6 mg/dL (8.5-10.1); COR NA(FOR HYPERGLY) 136 mmol/L (136-145); CREATININE 1.49 mg/dL (0.55-1.02); GLUCOSE 141 mg/dL (65-99); LIPASE 13 Units/L (16-77); POTASSIUM 3.8 mmol/L (3.5-5.1); SODIUM 135 mmol/L (136-145); TOTAL PROTEIN 6.7 g/dL (6.4-8.2); eGFR NON BLACK RACES 35 (>60)
--- NOTE | 2023-07-10 21:51 | CT ---
EXAM:BRAIN W/O CONHISTORY:PT IN ED VIS STRETCHER [facility] WITH C/O BACK PAIN. PER PT AND EMS PT FELL FLAT OF BACK AROUND NOON TODAY. ;COMPARISON:None availableTECHNIQUE:CT of the brain without contrastFINDINGS:Intracranial atherosclerotic calcifications. Generalized brain atrophy commensurate with age. No hemorrhage or extra-axial collection. No midline shift or mass effect. Small bruise in the posterior scalp. The mastoid air cells are clear. The zygomatic arches are intact. No skull fracture or suspicious bony lesion.IMPRESSION:No acute intracranial process.Small scalp hematoma.Dose reduction techniques including automated exposure control (AEC) and adjustment of mA and kv were utilized.THIS IS AN ELECTRONICALLY VERIFIED FINAL REPORT07/10/2023 9:48 PM - Electronically signed by Shakir Becker MD
--- NOTE | 2023-07-10 21:51 | CT ---
EXAM:CT cervical spine without contrastHISTORY:Fall, neck pain. Mechanism of injury.COMPARISON:None.TECHNIQUE:Nonenha nced spiral CT imaging was performed through the cervical spine and axial, coronal, and sagittal CT images were generated.FINDINGS:There is grade 1 anterolisthesis of C7 on T1 and of T1 on T2 and T2 on T3. There is no vertebral compression fracture. There is multilevel disc degeneration of the cervical spine. There is atlantoaxial degeneration. There is no fracture of the posterior elements. There is fairly heavy athero sclerotic calcification of the carotid arteries. There is biapical pleural-parenchymal scarring. There is no significant spinal stenosis. There is moderate right C6 neural foraminal narrowing and severe right C7 neural foraminal narrowing.IMPRESSION:Degeneration but nothing acute.THIS IS AN ELECTRONICALLY VERIFIED FINAL REPORT07/10/2023 9:48 PM - Electronically signed by Trent Christianson MD
--- NOTE | 2023-07-10 22:04 | CT ---
EXAM:ABDOMEN/PELVIS W/O CONHISTORY:Injury in a fall with abdominal and pelvic painCOMPARISON:None availableTECHNIQUE:CT of the abdomen and pelvis without intravenous contrastFINDINGS:Mild infiltrates in the lung bases may represent hypoventilatory change or developing pneumonia.Sensitivity is reduced without intravenous contrast. Heart is enlarged. The abdominal aorta demonstrates advanced multifocal atherosclerotic calcifications.No liver mass or laceration. Clips from prior cholecystectomy. Normal adrenal glands. The kidneys are not obstructed. No perinephric collections. The ureters taper normally.Unremarkable spleen. 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 Severe atrophy of the pancreas. Nonobstructed stomach.No pelvic free fluid. Severe diverticular disease of the colon without CT evidence of complication. No bowel wall thickening. There are abdominal varices present notable in the low ventral abdomen.There is an acute fracture of the L2 vertebral body with mild height loss. No CT sign of extension into the posterior elements. No retropulsion.IMPRESSION:Acute fracture of L2 vertebral body with mild height loss.No acute intra-abdominal process.Dose reduction techniques including automated exposure control (AEC) and adjustment of mA and kv were utilized.THIS IS AN ELECTRONICALLY VERIFIED FINAL REPORT07/10/2023 10:00 PM - Electronically signed by Shakir Becker MD
--- NOTE | 2023-07-10 22:05 | CT ---
PROCEDURE: Ct Chest without IV Contrast.HISTORY: Fall onto back with back pain.TECHNIQUE: Axial images were performed through the chest without the administration of IV contrast with multiplanar reformations . Dose reduction techniques including Automated Exposure Control (AEC) and adjustment of mA and kV were utilized.COMPARISON: None.TECHNICAL QUALITY: Satisfactory.FINDINGS:Moderate atherosclerosis thoracic aorta with tortuosity and no aneurysm or evidence of vascular trauma.No hemo mediastinum or pneumomediastinum.Mild cardiomegaly with no pericardial fluid. Diffuse coronary artery calcifications. Left atrial appendage occlusion device in place.No pulmonary contusion, hemothorax, or pneumothorax. Dependent atelectasis both lung bases.Visualized upper abdomen shows no solid organ trauma or ascites. 1 cm hypoattenuating lesion inferior spleen may represent an angioma. Previous cholecystectomy with dilated common duct at 11 mm and may be chronicPrevious sternotomy. 30% anterior wedge compression fracture L2 vertebral body.IMPRESSION:1. No thoracic vascular or pulmonary trauma.2. Diffuse coronary artery calcifications.3. Mild cardiomegaly.4. Left atrial appendage occlusion device.5. Small hypoattenuating lesion in the spleen may represent a small angioma.6. Dilated common duct that is probably chronic post cholecystectomy.7. Acute appearing 30% anterior wedging compression fracture L2 vertebral body.THIS IS AN ELECTRONICALLY VERIFIED FINAL REPORT07/10/2023 10:01 PM - Electronically signed by Rylan Stoll MD
[2023-07-10 23:34] LABS: BILIRUBIN,URINE NEGATIVE (NEGATIVE); BLOOD/HEMOGLOBIN,URINE 3+ (NEGATIVE); GLUCOSE, URINE NEGATIVE (NEGATIVE); KETONES,URINE NEGATIVE (NEGATIVE); LEUKOCYTE ESTERASE ,URINE 3+ (NEGATIVE); NITRITES,URINE NEGATIVE (NEGATIVE); PROTEIN,URINE 2+ (NEGATIVE); UROBILINOGEN,URINE 1+ (NORMAL)
[2023-07-10 23:40] LABS: APPEARANCE,URINE CLEAR (CLEAR); COLOR,URINE YELLOW (YELLOW)
[2023-07-10 23:41] LABS: BACTERIA,URINE TRACE /HPF (NEGATIVE); RBC,URINE 0-2 /HPF (0-3); SQUAMOUS EPITHELIAL CELL,UR RARE /HPF (NEGATIVE)
[2023-07-10] MEDS ORDERED: ROCEPHIN VIAL 1 GRAM ONE (23:47)
[2023-07-10] MEDS ORDERED: NS 500 ML IV 500 ML IV ONE (23:48)
[2023-07-10] MEDS ORDERED: NS 100 ML IV 100 ML ONE (23:48)
[2023-07-10] MEDS: ROCEPHIN VIAL 1 GRAM 1 G in NS 100 ML IV 100 ML IV SCH (23:55)
[2023-07-10] MEDS: NS 500 ML IV 500 ML IV ONE (23:55)
--- NOTE | 2023-07-11 00:32 | RAD ---
EXAM:FEMUR, LEFTHISTORY:left leg pain;COMPARISON:None availableTECHNIQUE:Left femur two viewsFINDINGS:Extensive vascular calcifications are present. No displaced fracture or periosteal reaction. No subluxation.IMPRESSION:No displaced fractureTHIS IS AN ELECTRONICALLY VERIFIED FINAL REPORT07/11/2023 12:28 AM - Electronically signed by Shakir Becker MD
--- NOTE | 2023-07-11 01:53 | RAD ---
EXAM: LOWER LEG, TIB/FIB LEFT HISTORY: PT IN ED VIS STRETCHER PER [facility] WITH C/O BACK PAIN. PER PT AND EMS PT FELL FLAT OF BACK A ROUND NOON TODAY. ; COMPARISON: None available TECHNIQUE: Left tibia fibula two views FINDINGS: Vascular calcifications are visible. Medial compartment joint space narrowing of the knee. No displ aced fracture or periosteal reaction. IMPRESSION: Nothing acute THIS IS AN ELECTRONICALLY VERIFIED FINAL REPORT 07/11/2023 1:50 AM - Electronically signed by Shakir Becker MD
[2023-07-11] MEDS ORDERED: NORCO 7.5/325 MG TAB PO ONE (03:03)
[2023-07-11] MEDS ORDERED: NORCO 7.5/325 MG TAB ONE (03:04)
[2023-07-11] MEDS: NORCO 7.5/325 MG TAB PO PRN (03:06)
[2023-07-11] MEDS ORDERED: CATAPRES TAB 0.1 MG PO PRN (03:41)
[2023-07-11] MEDS ORDERED: NITROSTAT SL PRN (03:41)
[2023-07-11] MEDS ORDERED: LINZESS PO PRN (03:41)
[2023-07-11] MEDS: SYNTHROID 100 mcg TAB PO SCH (06:10)
[2023-07-11 06:28] LABS: BASOPHILS % (AUTO) 0.4 % (0.2-1.0); EOSINOPHILS # (AUTO) 0.1 x10^3/uL (0.0-0.2); EOSINOPHILS % (AUTO) 1.2 % (0.9-2.9); HEMATOCRIT 36.3 % (36.0-47.0); HEMOGLOBIN 11.9 g/dL (12.0-16.0); LYMPHOCYTES # (AUTO) 0.8 X10^3/uL (1.3-2.9); LYMPHOCYTES % (AUTO) 8.2 % (21.0-51.0); MEAN CORPUSCULAR HGB CONC 32.8 g/dL (33.0-35.0); MEAN CORPUSCULAR VOLUME 91.4 fL (80.0-100.0); MONOCYTES # (AUTO) 0.8 x10^3/uL (0.3-0.8); MONOCYTES % (AUTO) 7.8 % (0.0-13.0); NEUTROPHILS # (AUTO) 8.3 x10^3/uL (2.2-4.8); NEUTROPHILS % (AUTO) 82.4 % (42.0-75.0); PLATELET COUNT 203 X10^3/uL (150.0-450.0); RED BLOOD COUNT 3.97 X10^6/uL (3.5-5.4)
[2023-07-11 06:38] LABS: CALCIUM 7.6 mg/dL (8.5-10.1); CARBON DIOXIDE 29.9 mmol/L (21-32); COR CA(FOR HYPOALB) 8.4 mg/dL (8.5-10.1); CREATININE 1.61 mg/dL (0.55-1.02); POTASSIUM 3.8 mmol/L (3.5-5.1); TOTAL PROTEIN 6.6 g/dL (6.4-8.2)
[2023-07-11] MEDS: DUONEB 0.5 MG/3 MG (3 mL) NEB SCH (08:08)
[2023-07-11] MEDS: PULMICORT NEB TX 0.5 MG NEB SCH (08:08)
[2023-07-11] MEDS: LOPRESSOR TAB 50 MG PO SCH (09:24)
[2023-07-11] MEDS: LEXAPRO ONE (09:24)
[2023-07-11] MEDS: LEXAPRO PO SCH (09:25)
[2023-07-11] MEDS: K-DUR TAB 20 MEQ PO ONE (09:25)
[2023-07-11] MEDS: MAG-OX TAB PO SCH (09:26)
[2023-07-11] MEDS: COLACE CAP 100 MG PO SCH (09:26)
[2023-07-11] MEDS: ASPIRIN EC 81 MG PO SCH (09:27)
[2023-07-11] MEDS: PROTONIX TAB 40 MG PO SCH (09:27)
[2023-07-11] MEDS: LYRICA CAP 75 mg PO SCH (09:28)
[2023-07-11] MEDS: COZAAR PO SCH (09:30)
[2023-07-11] MEDS: LOVENOX INJ 30 MG SYR SC SCH (09:34)
[2023-07-11] MEDS: ROCEPHIN VIAL 1 GRAM 1 G in NS 100 ML IV 100 ML IV SCH (10:44)
[2023-07-11] MEDS: NS 1,000 ML IV 1,000 ML IV SCH (10:50)
[2023-07-11] MEDS: CONSULT PHARMACY - POTASSIUM & MAGNESIUM XX SCH (19:13)
[2023-07-11] MEDS ORDERED: COLACE CAP 100 MG PO SCH (21:00)
[2023-07-11] MEDS ORDERED: ROCEPHIN VIAL 1 GRAM 1 G in NS 100 ML IV 100 ML IV SCH (21:00)
[2023-07-11] MEDS: MIRALAX POWDER (1 DOSE 17 G) PO SCH (21:12)
[2023-07-11] MEDS: LIPITOR TAB 40 MG PO SCH (21:12)
[2023-07-12 07:16] LABS: BASOPHILS # (AUTO) 0.1 X10^3/uL (0.0-0.1); BASOPHILS % (AUTO) 0.8 % (0.2-1.0); EOSINOPHILS # (AUTO) 0.3 x10^3/uL (0.0-0.2); EOSINOPHILS % (AUTO) 3.1 % (0.9-2.9); HEMATOCRIT 33.5 % (36.0-47.0); HEMOGLOBIN 10.9 g/dL (12.0-16.0); LYMPHOCYTES # (AUTO) 0.7 X10^3/uL (1.3-2.9); LYMPHOCYTES % (AUTO) 8.3 % (21.0-51.0); MEAN CORPUSCULAR HEMOGLOBIN 29.9 pg (27.0-34.0); MEAN CORPUSCULAR HGB CONC 32.6 g/dL (33.0-35.0); MEAN CORPUSCULAR VOLUME 91.7 fL (80.0-100.0); MEAN PLATELET VOLUME 10.1 fL (7.4-11.0); MONOCYTES # (AUTO) 0.9 x10^3/uL (0.3-0.8); MONOCYTES % (AUTO) 9.4 % (0.0-13.0); NEUTROPHILS # (AUTO) 7.1 x10^3/uL (2.2-4.8); NEUTROPHILS % (AUTO) 78.4 % (42.0-75.0); PLATELET COUNT 173 X10^3/uL (150.0-450.0); RED BLOOD COUNT 3.65 X10^6/uL (3.5-5.4); RED CELL DISTRIBUTION WIDTH 16.6 % (11.6-16.5); WHITE BLOOD COUNT 9.1 X10^3/uL (3.6-10.0)
[2023-07-12 07:41] LABS: ALBUMIN 2.7 g/dL (3.4-5.0); CALCIUM 7.4 mg/dL (8.5-10.1); CARBON DIOXIDE 29.9 mmol/L (21-32); COR CA(FOR HYPOALB) 8.4 mg/dL (8.5-10.1); CREATININE 1.2 mg/dL (0.55-1.02); POTASSIUM 4.1 mmol/L (3.5-5.1)
[2023-07-12] MEDS ORDERED: LEXAPRO ONE (08:25)
[2023-07-12] MEDS: LASIX PO SCH (09:09)
[2023-07-12 11:42] VITALS: BP 164/75; PULSE 92; RESP 22; TEMP 99.6; O2SAT 98
== END 2023-07-12 12:25 | disposition home health service (06) ==
LOC: ER 19:56 → MED/SURG 07-11 03:03 → INTOOBSV 07-11 03:03 → MED/SURG 07-11 03:52
PROVIDERS: ADMIT Family Medicine; ATTEND Obstetrics & Gynecology Obstetrics
DX: S00.03XA Contusion of scalp, initial encounter; M48.56XA Collapsed vertebra, not elsewhere classified, lumbar region, initial encounter for fracture; E03.8 Other specified hypothyroidism; R26.89 Other abnormalities of gait and mobility; M54.2 Cervicalgia; E78.5 Hyperlipidemia, unspecified; W18.39XA Other fall on same level, initial encounter; U07.1 COVID-19; N39.0 Urinary tract infection, site not specified; M79.605 Pain in left leg; E86.0 Dehydration; I10 Essential (primary) hypertension; R79.82 Elevated C-reactive protein (CRP); J12.82 Pneumonia due to coronavirus disease 2019

== ENCOUNTER 2023-07-17 13:27 | Observation (INO) ==
[2023-07-17] MEDS: COLACE CAP 100 MG PO SCH (14:13)
[2023-07-17] MEDS: LINZESS PO ONE (14:13)
[2023-07-17 14:19] LABS: BASOPHILS # (AUTO) 0.1 X10^3/uL (0.0-0.1); BASOPHILS % (AUTO) 0.7 % (0.2-1.0); EOSINOPHILS # (AUTO) 0.1 x10^3/uL (0.0-0.2); EOSINOPHILS % (AUTO) 0.6 % (0.9-2.9); HEMATOCRIT 37.8 % (36.0-47.0); HEMOGLOBIN 12.5 g/dL (12.0-16.0); LYMPHOCYTES % (AUTO) 9.8 % (21.0-51.0); MEAN CORPUSCULAR HEMOGLOBIN 29.6 pg (27.0-34.0); MEAN CORPUSCULAR HGB CONC 33.2 g/dL (33.0-35.0); MEAN CORPUSCULAR VOLUME 89.3 fL (80.0-100.0); MEAN PLATELET VOLUME 8.5 fL (7.4-11.0); MONOCYTES # (AUTO) 0.5 x10^3/uL (0.3-0.8); MONOCYTES % (AUTO) 5.5 % (0.0-13.0); NEUTROPHILS # (AUTO) 8.2 x10^3/uL (2.2-4.8); NEUTROPHILS % (AUTO) 83.4 % (42.0-75.0); PLATELET COUNT 256 X10^3/uL (150.0-450.0); RED BLOOD COUNT 4.23 X10^6/uL (3.5-5.4); RED CELL DISTRIBUTION WIDTH 15.9 % (11.6-16.5); WHITE BLOOD COUNT 9.8 X10^3/uL (3.6-10.0)
[2023-07-17 14:27] VITALS: BMI 28.5
[2023-07-17] MEDS: NORCO 7.5/325 MG TAB PO PRN (14:38)
[2023-07-17 14:41] LABS: ALANINE AMINOTRANSFERASE 23 Units/L (12-78); ALBUMIN 3.5 g/dL (3.4-5.0); ALKALINE PHOSPHATASE 249 Units/L (46-116); ASPARTATE AMINO TRANSFERASE 28 Units/L (15-37); BLOOD UREA NITROGEN 24 mg/dL (7-18); CALCIUM 8.9 mg/dL (8.5-10.1); CARBON DIOXIDE 22.6 mmol/L (21-32); CHLORIDE 95 mmol/L (98-107); CREATININE 1.38 mg/dL (0.55-1.02); GLUCOSE 95 mg/dL (65-99); POTASSIUM 4.5 mmol/L (3.5-5.1); SODIUM 132 mmol/L (136-145); TOTAL PROTEIN 7.3 g/dL (6.4-8.2); eGFR NON BLACK RACES 38 (>60)
[2023-07-17] MEDS: CATAPRES TAB 0.1 MG PO NR (15:12)
[2023-07-17 20:01] VITALS: RESP 18
[2023-07-17] MEDS: LOPRESSOR TAB 50 MG PO SCH (20:31)
--- NOTE | 2023-07-17 22:49 | RAD ---
EXAM:ACUTE ABDOMEN SERI ESHISTORY:FECAL IMPACTION;COMPARISON:No relevant prior studies available.TECHNIQUE:AP supine and upright abdominal radiographs with chest radiography, 3 images.FINDINGS:Gas in non distended colon.No gross free air.No abnormal calcifications.Lungs are clear of focal airspace disease.Mild cardiomegaly.Status post median sternotomy/CABG.No pneumothorax.No pleural effusion.No acute osseous abnormality.IMPRESSION:No acute intra-abdominal or intrathoracic abnormality detected.THIS IS AN ELECTRONICALLY VERIFIED FINAL REPORT07/17/2023 10:46 PM - Electronically signed by Vinnie Martinez MD
[2023-07-18] MEDS ORDERED: TYLENOL 325 MG TAB PO PRN (02:45)
[2023-07-18] MEDS: SYNTHROID 100 mcg TAB PO SCH (05:38)
--- NOTE | 2023-07-18 05:38 | RAD ---
EXAM:ACUTE ABDOMEN SERI ESHISTORY:FECAL IMPACTION; CARDIAC ARRHYTHMIA, HTN, AFIB, ANEMIA SX: WATCHMAN, TRIPLE BYPASS, SHAMEKA, ORTHO, TONSILSCOMPARISON:07/17/2023FINDINGS:The cardiomediastinal silhouette is stable. Similar post sternotomy changes. No acute airspace disease. No pneumothorax or effusion.No acute osseous abnormality in the thorax.Evaluation of the abdomen demonstrates a nonobstructive bowel gas pattern. no evidence of pneumoperitoneum. No pathologic soft tissue calcification. No acute osseous abnormality in the abdomen.IMPRESSION:1. No acute cardiopulmonary process.2. No acute abdominal process. Nonobstructive bowel gas pattern.THIS IS AN ELECTRONICALLY VERIFIED FINAL REPORT07/18/2023 5:33 AM - Electronically signed by Casimiro Mcdaniels MD
[2023-07-18 05:57] LABS: BASOPHILS # (AUTO) 0.1 X10^3/uL (0.0-0.1); BASOPHILS % (AUTO) 0.7 % (0.2-1.0); EOSINOPHILS # (AUTO) 0.1 x10^3/uL (0.0-0.2); EOSINOPHILS % (AUTO) 1.2 % (0.9-2.9); HEMATOCRIT 32.9 % (36.0-47.0); HEMOGLOBIN 10.9 g/dL (12.0-16.0); LYMPHOCYTES # (AUTO) 0.8 X10^3/uL (1.3-2.9); LYMPHOCYTES % (AUTO) 7.1 % (21.0-51.0); MEAN CORPUSCULAR HEMOGLOBIN 29.4 pg (27.0-34.0); MEAN PLATELET VOLUME 8.2 fL (7.4-11.0); MONOCYTES # (AUTO) 0.5 x10^3/uL (0.3-0.8); MONOCYTES % (AUTO) 4.9 % (0.0-13.0); NEUTROPHILS # (AUTO) 9.6 x10^3/uL (2.2-4.8); NEUTROPHILS % (AUTO) 86.1 % (42.0-75.0); PLATELET COUNT 241 X10^3/uL (150.0-450.0); RED CELL DISTRIBUTION WIDTH 16.2 % (11.6-16.5); WHITE BLOOD COUNT 11.1 X10^3/uL (3.6-10.0)
[2023-07-18 06:13] LABS: ALANINE AMINOTRANSFERASE 15 Units/L (12-78); ALBUMIN 2.7 g/dL (3.4-5.0); ALKALINE PHOSPHATASE 192 Units/L (46-116); ASPARTATE AMINO TRANSFERASE 22 Units/L (15-37); BLOOD UREA NITROGEN 21 mg/dL (7-18); CALCIUM 8.1 mg/dL (8.5-10.1); CARBON DIOXIDE 25.3 mmol/L (21-32); CHLORIDE 98 mmol/L (98-107); COR CA(FOR HYPOALB) 9.1 mg/dL (8.5-10.1); CREATININE 1.03 mg/dL (0.55-1.02); GLUCOSE 92 mg/dL (65-99); POTASSIUM 4.1 mmol/L (3.5-5.1); SODIUM 133 mmol/L (136-145); TOTAL PROTEIN 5.8 g/dL (6.4-8.2); eGFR NON BLACK RACES 54 (>60)
[2023-07-18] MEDS ORDERED: LEXAPRO ONE (08:01)
[2023-07-18] MEDS: MICARDIS PO SCH (08:20)
[2023-07-18] MEDS: LEXAPRO PO SCH (08:20)
[2023-07-18] MEDS: LOVENOX INJ 30 MG SYR SC SCH (12:57)
[2023-07-18] MEDS: LOPRESSOR TAB 50 MG PO SCH ×2 (12:57→20:31)
[2023-07-18] MEDS: LOPRESSOR TAB 50 MG PO NR (13:14)
[2023-07-18] MEDS: COLACE CAP 100 MG PO SCH (20:31)
[2023-07-19 05:23] LABS: BASOPHILS # (AUTO) 0.1 X10^3/uL (0.0-0.1); BASOPHILS % (AUTO) 0.9 % (0.2-1.0); EOSINOPHILS # (AUTO) 0.2 x10^3/uL (0.0-0.2); HEMATOCRIT 31.7 % (36.0-47.0); HEMOGLOBIN 10.8 g/dL (12.0-16.0); LYMPHOCYTES # (AUTO) 0.8 X10^3/uL (1.3-2.9); LYMPHOCYTES % (AUTO) 13.3 % (21.0-51.0); MEAN CORPUSCULAR HEMOGLOBIN 30.1 pg (27.0-34.0); MEAN CORPUSCULAR HGB CONC 33.9 g/dL (33.0-35.0); MEAN CORPUSCULAR VOLUME 88.6 fL (80.0-100.0); MEAN PLATELET VOLUME 8.5 fL (7.4-11.0); MONOCYTES # (AUTO) 0.5 x10^3/uL (0.3-0.8); MONOCYTES % (AUTO) 8.7 % (0.0-13.0); NEUTROPHILS # (AUTO) 4.5 x10^3/uL (2.2-4.8); NEUTROPHILS % (AUTO) 73.1 % (42.0-75.0); PLATELET COUNT 266 X10^3/uL (150.0-450.0); RED BLOOD COUNT 3.58 X10^6/uL (3.5-5.4); RED CELL DISTRIBUTION WIDTH 16.1 % (11.6-16.5); WHITE BLOOD COUNT 6.1 X10^3/uL (3.6-10.0)
[2023-07-19 05:31] LABS: ALANINE AMINOTRANSFERASE 16 Units/L (12-78); ALBUMIN 2.6 g/dL (3.4-5.0); ALKALINE PHOSPHATASE 176 Units/L (46-116); ASPARTATE AMINO TRANSFERASE 24 Units/L (15-37); BLOOD UREA NITROGEN 14 mg/dL (7-18); CALCIUM 8.4 mg/dL (8.5-10.1); CARBON DIOXIDE 25.3 mmol/L (21-32); CHLORIDE 101 mmol/L (98-107); COR CA(FOR HYPOALB) 9.5 mg/dL (8.5-10.1); CREATININE 0.99 mg/dL (0.55-1.02); GLUCOSE 94 mg/dL (65-99); POTASSIUM 4.3 mmol/L (3.5-5.1); SODIUM 138 mmol/L (136-145); TOTAL PROTEIN 5.7 g/dL (6.4-8.2); eGFR NON BLACK RACES 56 (>60)
[2023-07-19] MEDS: LEXAPRO ONE (09:02)
[2023-07-19 09:23] VITALS: BP 185/92; PULSE 67; TEMP 97.9; O2SAT 95
[2023-07-19] MEDS: MIACALCIN NASAL SPRAY NAS SCH (09:32)
== END 2023-07-19 11:30 | disposition home health service (06) ==
LOC: MED/SURG
PROVIDERS: ADMIT Obstetrics & Gynecology Obstetrics; ATTEND Obstetrics & Gynecology Obstetrics
DX: K56.41 Fecal impaction; I48.91 Unspecified atrial fibrillation; I10 Essential (primary) hypertension; R26.89 Other abnormalities of gait and mobility; E87.1 Hypo-osmolality and hyponatremia; K58.8 Other irritable bowel syndrome